=== PATIENT | male | born 2000 | race Caucasian/White ===

== ENCOUNTER → 2021-05-10 15:42 | Outpatient (BNVA) | payer SELFPAY | PROVIDERS: PCP Nurse Practitioner Family; Visit Provider Nurse Practitioner Family | DX: S99.911D Unspecified injury of right ankle, subsequent encounter (principal); X58.XXXD Exposure to other specified factors, subsequent encounter | CPT/HCPCS: 73610; 73630 ==

== ENCOUNTER 2021-05-11 15:23 | Outpatient (CLI) | payer SELFPAY | END 2021-05-11 15:24 | disposition home or self-care (01) | LOC: SPT 15:23 | PROVIDERS: PCP Nurse Practitioner Family; Visit Provider Podiatrist Foot & Ankle Surgery | DX: Z46.89 Encounter for fitting and adjustment of other specified devices (principal); S99.921D Unspecified injury of right foot, subsequent encounter; S99.911D Unspecified injury of right ankle, subsequent encounter; X58.XXXD Exposure to other specified factors, subsequent encounter | CPT/HCPCS: 97760; L4361 ==

== ENCOUNTER → 2021-05-17 12:42 | Outpatient (BNVA) | payer SELFPAY | PROVIDERS: PCP Nurse Practitioner Family; Visit Provider Podiatrist Foot & Ankle Surgery | DX: Z01.818 Encounter for other preprocedural examination (principal) | CPT/HCPCS: 87635 ==

== ENCOUNTER 2021-05-21 08:15 | Day surgery (SDC) | payer SELFPAY ==
[2021-05-20 16:42] VITALS: BMI 27.5
[2021-05-21] VITALS (11 sets, daily range): BP systolic 135–149; BP diastolic 72–87; PULSE 52–104; RESP 16–20; TEMP 36.3–36.8; O2SAT 97–100
--- NOTE | 2021-05-21 | SCC_ITS ---
Procedure Done: ORIF Right Medial Cuneiform 19926 38 seconds of fluoroscopic guidance, for a cumulative dose of 0.7 mGy, was provided to Dr. Banks by the radiology department. C-arm images of the RIGHT foot were saved for the patient's permanent record. [facility]
[2021-05-21] MEDS: sodium chloride 0.9% 1,000 ML 30 ML IV (08:40)
--- NOTE | 2021-05-21 09:21 | P.ANESASSM_ITS ---
Pre-Anesthetic Assessment Pre-Anesthetic Assessment: Height/Weight: Height 1.91 m Weight 99.79 kg Temp Pulse Resp BP Pulse Ox 97.6 F 80 18 149/72 97 05/21/21 08:23 05/21/21 08:23 05/21/21 08:23 05/21/21 08:23 05/21/21 08:23 Preop Diagnosis: Right Lisfranc fracture Proposed Procedure: Operation Date: 05/21/21 09:25 Proposed Procedures p ORIF Right Medial Cuneiform 39405 S92.241(Right) - TERE WhiteM Was Beta Kassi taken within 24 hours: N/A Was Clonidine taken within 24 hours: N/A Last intake: Intake Last Liquid Date 05/20/21 Last Liquid Time 23:59 Last Solid Date 05/20/21 Last Solid Time 19:00 Social: Social History: Tobacco and No alcohol Exam: Pre-Anes Outpt Exam: alert, oriented x 3, clear to auscultation bilatera lly and regular rate & rhythm Airway: Submandibular: WNL Cervical ROM: WNL MP: 2 Dentition: Chipped Anesthetic Plan: ASA status: 2 Anesthesia: General Risk of > 500 ml blood loss (7ml/kg in children): No Meds/Allergies Current Medications: Current Medications Generic Name Dose Route Start Last Admin Trade Name Freq PRN Reason Stop Dose Admin Sodium Chloride 1,000 mls @ 30 ml s/hr 05/21/21 08:30 05/21/21 08:40 Sodium Chloride 0.9% IV 05/22/21 08:29 30 mls/hr .Q24H GENIA Administration PFSH Anesthesia PFSH: Medical History Bursitis and tendinitis of shoulder region Injury of right ankle and foot Muscle spasm of back Social History Alcohol intake: never Data Anesthesia Cardiac Studies: No Data to Display
--- NOTE | 2021-05-21 10:27 | W.PM.OPSUD ---
Surgery/Procedure H&P Update DATE OF PROCEDURE: May 21, 2021 DATE H&P PERFORMED: 05/11/21 H&P UPDATE INFORMATION: I have reviewed H&P completed within last 30 days, I have examined patient prior to procedure, No changes to prior documentation and H&P is in [facility] EMR on date indicated PREOP DIAGNOSIS: Right Lisfranc fracture PLANNED PROCEDURE: Operation Date: 05/21/21 09:25 Proposed Procedures p ORIF Right Medial Cuneiform 24982 S92.241(Right) - Gerber Banks DPM
--- NOTE | 2021-05-21 10:35 | PM.OP ---
Operative Report Date of procedure: May 21, 2021 Pre-op Diagnosis: Right Lisfranc fracture
[2021-05-21] MEDS: lidocaine 1% INJ 20 mL 15 ML INJECTION (11:00)
--- NOTE | 2021-05-21 11:12 | PM.OP ---
Operative Report Date of procedure: May 21, 2021 Pre-op Diagnosis: Right Lisfranc fracture Post-op diagnosis: same Post-op Findings: none Procedure Done: ORIF Right Medial Cuneiform 19029 Implants: Monteview 28 4 mm screw by 46 mm with washer, 4-0 nylon Specimens removed/disposition: none Pathology: none sent Surgeon: Gerber Banks D.P.M. 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 Recommended open reduction internal fixation as best course of action to manage this fracture. Explained to the patient that he has a probability of posttraumatic arthritis, chronic pain and instability as a result of this type of injury. Open reduction for fixation may help reduce this complication. Risks include pain, bleeding, numbness, infection, hardware failure, hardware irritation, need for further also risk for deep vein thrombosis, heart attack, stroke and . Covid screening was negative, patient n.p.o. since midnight, informed consent signed I initialed the patient's right foot. He wishes to proceed. Procedure: Under mild sedation the patient was brought to the operating room and placed on the operating table in supine position. A timeout was performed. Anesthesia was then administered by the anesthesia service. Local anesthesia injected by myself 30 cc of one-to-one mixture 0.5% Marcaine plain and 1% lidocaine plain in a proximal Hanna block fashion to the right foot. Well-padded pneumatic tourniquet applied to the right ankle. The right lower extremity was then scrubbed, prepped and draped utilizing normal aseptic technique. Right foot was extenuated with an Esmarch bandage and the tourniquet was inflated to 250 mmHg. Attention was directed to the right foot where skin marking and trajectory was performed utilizing triangulation with the fluoroscopy intraoperatively. Once the trajectory was confirmed under fluoroscopy a Monteview 28 4 mm x 46 mm partially-threaded cannulated screw with washer was inserted with excellent bony apposition and compression noted utilizing standard AO technique. Placement was appropriate for supporting the Lisfranc ligament and fracture of the medial cuneiform of the right foot. Incision was flushed with saline solution and closed with 4-0 nylon. Incision site was dressed with Adaptic, sterile 4 x 4, Kerlix, Fabrice wrap and cam boot was applied. Tourniquet was deflated and a prompt hyperemic response was noted to the distal digits of the right foot. Patient tolerated the procedure and anesthesia well and was transferred to the PACU with vital signs stable vascular status intact. Following a period of postoperative monitoring he will be discharged home is to remain nonweightbearing to the right foot at all times will be following up in podiatry clinic next week for nurse visit dressing change.
--- NOTE | 2021-05-21 11:17 | XR_ITS ---
WS: [id number] XR foot RT min 3V* [id number] REASON FOR EXAM: post op FINDINGS: Long screw fixation of previously demonstrated right cuboid fracture. Screw extends from medial infer ior cuboid anteriorly and laterally through the fracture fragment and into the base of the second met atarsal. Surgical appliance and associated bony structure in proper position and alignment. XR/XR foot RT min 3V* [id number] IMPRESSION: Postoperative right foot as above.
[2021-05-21] MEDS: meperidine 50 mg/mL INJ 12.5 MG IVP (11:34)
--- NOTE | 2021-05-21 11:37 | SUR.PHASEI ---
medicated for shivering. x ray done.
[2021-05-21] MEDS: fentaNYL 50 mcg/mL INJ 2mL IVP (11:42)
--- NOTE | 2021-05-21 11:45 | SUR.PHASEI ---
re- medicated for foot pain
[2021-05-21] MEDS: oxyCODONE-APAP 10-325 mg Tablet 1 TAB PO (12:13)
--- NOTE | 2021-05-21 13:17 | ANE.PACU2 ---
Inpatient post-anesthesia follow up: Airway intact: Yes Vital signs: Temperature 98.2 F Pulse Rate 59 Respiratory Rate 18 Blood Pressure 145/86 Pulse Oximetry 98 Oxygen Delivery Me thod Room Air Oxygen Flow Rate Fraction of Inspir ed Oxygen Hydration adequate: Yes Nausea and vomiting: No Pain level: 2 Mental status: Baseline
== END 2021-05-21 12:32 | disposition home or self-care (01) ==
PROVIDERS: PCP Nurse Practitioner Family; Visit Provider Podiatrist Foot & Ankle Surgery
PROC: (CPT 28465; principal; 2021-05-21 09:25)
DX: S92.241A Displaced fracture of medial cuneiform of right foot, initial encounter for closed fracture (principal); W23.0XXA Caught, crushed, jammed, or pinched between moving objects, initial encounter
CPT/HCPCS: 28465; 73630; 76000; 96365; C1713; J0690; J2175; J2704; J3010; J3490; J7030

== ENCOUNTER → 2021-06-02 15:18 | Outpatient (BNVA) | payer SELFPAY | PROVIDERS: PCP Nurse Practitioner Family; Visit Provider Podiatrist Foot & Ankle Surgery | DX: Z98.890 Other specified postprocedural states (principal) | CPT/HCPCS: 73630 ==

== ENCOUNTER → 2021-06-30 09:15 | Outpatient (BNVA) | payer SELFPAY | PROVIDERS: PCP Nurse Practitioner Family; Visit Provider Podiatrist Foot & Ankle Surgery | DX: Z98.890 Other specified postprocedural states (principal) | CPT/HCPCS: 73630 ==

== ENCOUNTER → 2021-07-12 10:48 | Outpatient (BNVA) | payer SELFPAY | PROVIDERS: PCP Nurse Practitioner Family; Visit Provider Podiatrist Foot & Ankle Surgery | DX: Z98.890 Other specified postprocedural states (principal) | CPT/HCPCS: 73630 ==

== ENCOUNTER → 2022-06-21 14:15 | Outpatient (BNVA) | payer MEDICAID, SELFPAY | PROVIDERS: PCP Nurse Practitioner; Visit Provider Nurse Practitioner | DX: R19.8 Other specified symptoms and signs involving the digestive system and abdomen (principal) | CPT/HCPCS: 87177; 87209; 87493; 87506 ==

== ENCOUNTER 2022-07-04 20:31 | Emergency (ER) | payer MEDICAID, SELFPAY ==
[2022-07-04 20:39] VITALS: BP 162/105; PULSE 71; RESP 16; TEMP 36.6; O2SAT 99; BMI 28.1
[2022-07-04 20:42] VITALS: BP 140/100; PULSE 68; RESP 16; O2SAT 99
--- NOTE | 2022-07-04 20:42 | ECG_ITS ---
[facility] Test Date: 2022-07-04 Pat Name: Narendra Harrison Department: Room: Gender: Male Director Trial: : 2000 Requested By: Lexy Ahuja Order Number: [id number] Heath MD: Justin Mckeon M.D. Measurements Intervals [place] Rate: 65 P: 56 [place]: 158 QRS: 34 QRSD: 110 T: 20 QT: 388 QTc: 405 Interpretive Statements SINUS RHYTHM No previous ECG available for comparison Electronically Signed On 07-04-2022 22:50:13 CLINICIAN ONCOLOGY by Justin Mckeon M.D. [id number]
--- NOTE | 2022-07-04 20:47 | XRR_ITS ---
PROCEDURE INFORMATION: Exam: XR Chest Exam date and time: 07/04/2022 8:53 PM Age: 22 years old Clinical indication: Pain; Patient HX: C/O palpitations; Additional info: Cp TECHNIQUE: Imaging protocol: Radiologic exam of the chest. Views: 1 view. COMPARISON: No relevant prior studies available. FINDINGS: Lungs: Lungs are clear bilaterally. Pleural spaces: No pleural effusion. No pneumothorax. Heart/Mediastinum: The cardiac silhouette and mediastinal contours are unremarkable. Bones/joints: Unremarkable for age. XR/XR chest 1V portable [id number] IMPRESSION: Negative chest radiograph.
--- NOTE | 2022-07-04 20:47 | W.ED.ABDPA2 ---
HPI - Abdominal Pain General: Chief Complaint: Abdominal Pain Stated Complaint: abd pain, headache Time Seen by Provider: 07/04/22 20:33 Source: patient Mode of arrival: ambulatory Limitations: no limitations History of Present Illness: 22-year-old male states that over the last month he has been having some palpitations along with chest pain and abdominal pain states has been seen at multiple places including at his primary care physician [facility] and [facility] he states he had blood work done along with a Holter monitor and CT scans he states they have came back normal he states he supposed to get set up for an EGD and colonoscopy states that today has been having abdominal cramping he states the pain is roughly a 2 out of 10 he has had no vomiting he has had some mild chest pains as well denies any shortness of breath. He denies any worsening proving factors. Associated Symptoms: Denies chills, dysuria and fever(s) Review of Systems Const: Denies: fever(s), chills, body aches or change in appetite Eyes: Denies: blurry vision or eye discomfort ENMT: Denies: throat pain or dental pain Card: Reports: palpitations Resp: Denies: dyspnea GI: Reports: abdominal pain : Denies: dysuria Musc: Denies: neck pain or back pain Skin/Breast: Denies: rash Neuro: Denies: headache(s) Psych: Denies: depression Sarbjit/Lymph: Denies: easy bruising All/Imm: Denies: urticaria PFSH ED PFSH: Medical History Bursitis and tendinitis of shoulder region Injury of right ankle and foot Muscle spasm of back Social History Alcohol intake: never Physical Exam Const: COMMON NORMALS: no acute distress, patient oriented x3 and healthy appearing HENMT: COMMON NORMALS: normocephalic and atraumatic HEAD & SCALP: normocephalic and atraumatic Eye: COMMON NORMALS: Equal, round and reactive pupils present and EOMs intact bilaterally PUPIL: Yes Equal, round and reactive pupils present Neck/C-Spine: COMMON NORMALS: full ROM and supple Chest: COMMONS NORMALS: normal inspection of the chest and normal palpation of entire chest wall Resp: COMMON NORMALS: normal respiratory effort, No retractions, No use of accessory muscles and clear to auscultation bilaterally AUSCULTATION: clear to auscultation bilaterally Cardio: COMMON NORMALS: regular rate, regular rhythm and No murmurs present (Cardio) RATE: regular rate RHYTHM: regular rhythm GI: COMMON NORMALS: Normal to inspection, nondistended, normoactive bowel sounds present, Soft to palpation, non-tender and no masses PALPATION: Yes Soft to palpation Extremity: COMMON NORMALS: normal to inspection and full ROM Neuro: COMMON NORMALS: patient oriented x3, moves all extremities and no focal motor deficits Psych: COMMON NORMALS: mental status grossly normal, Normal thought process present and cooperative THOUGHT PROCESS: Normal thought process present Skin: COMMON NORMALS: no rashes or lesions noted and no wounds GENERAL SKIN EXAM: no rashes or lesions noted Course Vital Signs: Vital signs: Vital Signs Temperature 97.8 F 07/04/22 20:39 Pulse Rate 68 07/04/22 20:42 Respiratory Rate 16 07/04/22 20:42 Blood Pressure 140/100 07/04/22 20:42 Pulse Oximetry 99 07/04/22 20:42 Oxygen Delivery Me thod 07/04/22 20:42 MDM - Abdominal Pain Medical Decision Making Patient presents here with abdominal pain along chest pains atypical in nature being on for weeks his blood work including troponin here normal he stable for discharge we will get him follow-up with surgery return if worsening. Lab Data 07/04/22 20:40 07/04/22 20:40 Labs/Radiology: Radiology Impressions Chest X-Ray 07/04/22 20:47 IMPRESSION: Negative chest radiograph. Laboratory Results WBC 9.6 10^3/uL (4.0-10.0) 07/04/22 20:40 RBC 5.15 10^6/uL (4.1-5.3) 07/04/22 20:40 Hgb 15.3 g/dL (11.7-16.6) 07/04/22 20:40 Hct 44.4 % (42.0-52.0) 07/04/22 20:40 MCV 86.2 fl (80-94) 07/04/22 20:40 MCH 29.7 pg (28.0-34.0) 07/04/22 20:40 MCHC 34.5 g/dL (30.0-36.0) 07/04/22 20:40 RDW 12.1 % (12.1-15.1) 07/04/22 20:40 Plt Count 265 10^3/cmm (130-400) 07/04/22 20:40 MPV 10.8 fL (7.4-10.4) H 07/04/22 20:40 Neut % (Auto) 58.7 % 07/04/22 20:40 Lymph % (Auto) 32.4 % 07/04/22 20:40 Harper % (Auto) 7.1 % 07/04/22 20:40 Eos % (Auto) 0.9 % 07/04/22 20:40 Baso % (Auto) 0.4 % 07/04/22 20:40 Neut # (Auto) 5.64 10^3/uL (1.8-7.7) 07/04/22 20:40 Lymph # (Auto) 3.1 10^3/uL (0.8-4.8) 07/04/22 20:40 Harper # (Auto) 0.7 10^3/uL (0.2-0.9) 07/04/22 20:40 Eos # (Auto) 0.1 10^3/uL (0.0-0.8) 07/04/22 20:40 Baso # (Auto) 0.0 10^3/uL (0.0-0.1) 07/04/22 20:40 Nucleated RBC % (auto) 0 % 07/04/22 20:40 Nucleated RBCs # 0.0 /100WBC 07/04/22 20:40 Sodium 136 mmol/L (136-145) 07/04/22 20:40 Potassium 3.2 mmol/L (3.5-5.1) L 07/04/22 20:40 Chloride 98 mmol/L (98-107) 07/04/22 20:40 Carbon Dioxide 25 mmol/L (22-29) 07/04/22 20:40 Anion Gap 16.2 (5-19) 07/04/22 20:40 BUN 13 mg/dL (6-20) 07/04/22 20:40 Creatinine 1.1 mg/dL (0.7-1.2) 07/04/22 20:40 GFR Calculation 82.2 mL/min (90-130) L 07/04/22 20:40 Glucose 108 mg/dL (65-115) 07/04/22 20:40 Calculated Osmolality 283 mOsm/kg (285-295) L 07/04/22 20:40 Calcium 9.3 mg/dL (8.5-10.5) 07/04/22 20:40 Total Bilirubin 0.2 mg/dL (0.15-1.2) 07/04/22 20:40 AST 33 U/L (0-40) 07/04/22 20:40 ALT 53 U/L (0-41) H 07/04/22 20:40 Alkaline Phosphatase 79 U/L (40-130) 07/04/22 20:40 Troponin T Baseline 6 ng/L (0-15) 07/04/22 20:40 Total Protein 7.9 g/dL (6.6-8.7) 07/04/22 20:40 Albumin 4.9 g/dL (3.5-5.2) 07/04/22 20:40 Globulin 3.0 g/dL (1.3-4.6) 07/04/22 20:40 Lipase 43 U/L (13-60) 07/04/22 20:40 EKG Data EKG 1: I personally reviewed and interpreted this EKG as follows: EKG interpretation date: 07/04/22 EKG interpretation time: 20:42 Interpretation: nsr hr [address] or t wave abnormalities qrs 110 [id number] Discharge Plan Discharge Patient Disposition: Home Clinical Impression: Abdominal pain, Chest pain Condition: Stable Prescriptions: New ondansetron 4 mg tablet,disintegrating 4 mg PO Q6H PRN (Reason: nausea and vomiting) Qty: 14 0RF dicyclomine 20 mg tablet 20 mg PO TID PRN (Reason: abdominal discomfort) Qty: 20 0RF No Action ibuprofen 800 mg tablet 800 mg PO Q8H PRN (Reason: pain) 30 Days Qty: 90 0RF buspirone 5 mg tablet 5 mg PO BID Qty: 60 1RF omeprazole 40 mg capsule,delayed release(DR/EC) 40 mg PO DAILY 14 Days Qty: 14 0RF Discharge Orders: Discharge ED (Routine); Ordered 07/04/22 Ordered By: Lexy Ahuja Referrals: Frank Nunez DO [Physician] - 1-3 days Discharge Diet: Advance as tolerated Discharge Activity: Resume usual activity Patient Instructions: Abdominal Pain (ED) Coding Level of Care Code ED [employer]ist for Chg Fwd Exam Comprehensive
[2022-07-04 21:04] LABS: Basophils % 0.4 %; Eosinophils # 0.1 10^3/uL (0.0-0.8); Eosinophils % 0.9 %; Hematocrit 44.4 % (42.0-52.0); Hemoglobin 15.3 g/dL (11.7-16.6); Lymphocytes # 3.1 10^3/uL (0.8-4.8); Lymphocytes % 32.4 %; Mean Corpuscular HGB Conc 34.5 g/dL (30.0-36.0); Mean Corpuscular Hemoglobin 29.7 pg (28.0-34.0); Mean Corpuscular Volume 86.2 fl (80-94); Mean Platelet Volume 10.8 fL (7.4-10.4); Monocytes # 0.7 10^3/uL (0.2-0.9); Monocytes % 7.1 %; Neutrophils # 5.64 10^3/uL (1.8-7.7); Neutrophils % 58.7 %; Nucleated Red Blood Cells % 0 %; Platelet Count 265 10^3/cmm (130-400); Red Blood Count 5.15 10^6/uL (4.1-5.3); Red Cell Distribution Width 12.1 % (12.1-15.1); White Blood Count 9.6 10^3/uL (4.0-10.0)
[2022-07-04 21:17] LABS: Alanine Aminotransferase 53 U/L (0-41); Albumin Level 4.9 g/dL (3.5-5.2); Alkaline Phosphatase 79 U/L (40-130); Anion Gap 16.2 (5-19); Aspartate Amino Transferase 33 U/L (0-40); Blood Urea Nitrogen 13 mg/dL (6-20); Calcium 9.3 mg/dL (8.5-10.5); Carbon Dioxide 25 mmol/L (22-29); Chloride 98 mmol/L (98-107); Glomerular Filtration Rate 82.2 mL/min (90-130); Glucose 108 mg/dL (65-115); Lipase 43 U/L (13-60); Osmolality Calculated 283 mOsm/kg (285-295); Potassium 3.2 mmol/L (3.5-5.1); Sodium 136 mmol/L (136-145); Total Bilirubin 0.2 mg/dL (0.15-1.2); Total Protein 7.9 g/dL (6.6-8.7)
[2022-07-04 21:18] LABS: Troponin(5th) Baseline 6 ng/L (0-15)
[2022-07-04 21:38] VITALS: BP 152/99; PULSE 75; RESP 16; O2SAT 100
--- NOTE | 2022-07-05 10:09 | DCPLANNER ---
Addendum entered by Henny Win 07/14/22 15:09: market sales manager received the following message from the front offices staff at general surgery regarding follow up appointment: Patient is going to talk to FA and call us back. 07/11 Original Note: market sales manager had message to schedule a follow up appointment for patient with general surgery. market sales manager sent patients information to the front office staff at general surgery. Patients information will be printed and reviewed. Clinic will call patient with appointment information.
== END 2022-07-04 21:41 | disposition home or self-care (01) ==
PROVIDERS: Emergency Provider Emergency Medicine
DX: R07.9 Chest pain, unspecified (principal); R10.9 Unspecified abdominal pain
CPT/HCPCS: 71045; 80053; 83690; 84484; 85025; 93005; 99285

== ENCOUNTER 2022-07-29 21:31 | Emergency (ER) | payer MEDICAID, SELFPAY ==
[2022-07-29 21:33] VITALS: BP 149/91; PULSE 64; RESP 16; TEMP 36.9; O2SAT 100
[2022-07-29 22:02] LABS: Add Urine Microscopic? NO; Charge for UA Resulting for Rev
[2022-07-29 22:09] LABS: Bilirubin Urine Neg (Negative); Blood Urine Neg (Negative); Glucose Urine UA Norm (Normal); Ketones Urine Negative (Negative); Leukocyte Esterase Urine Negative (Negative); Nitrate Urine Negative (Negative); Protein Urine Neg (Negative); Specific Gravity, Urine 1.005 (1.005-1.030); Urine Appearance Clear (CLEAR); Urine Color Colorless (Yellow); Urobilinogen Urine Neg (Negative); pH Urine 7 (5-7)
[2022-07-29] MEDS: ondansetron 2 mg/ML SDV 2 mL 4 MG IVP (22:11)
[2022-07-29] MEDS: sodium chloride 0.9% 1,000 ML 999 ML IV (22:12)
--- NOTE | 2022-07-29 22:15 | USR_ITS ---
PROCEDURE INFORMATION: Exam: US Abdomen, Limited; Right Upper Quadrant Exam date and time: 07/29/2022 10:22 PM Age: 22 years old Clinical indication: Abdominal pain; Epigastric; Additional info: Ruq pain, nause and diarrhea TECHNIQUE: Imaging protocol: Real time ultrasound of the abdomen with image documentation. Limited exam focused on the right upper quadrant. COMPARISON: No relevant prior studies available. FINDINGS: Pleural spaces: Right pleural effusion. Liver: Normal. No masses. Gallbladder: Small volume echogenic cholelithiasis within a contracted gallbladder. No definite wall thickening. No pericholecystic fluid. Biliary ducts: Normal. No stones. No dilation. Pancreas: Visualized pancreas is unremarkable. Right kidney: Normal. No mass. No hydronephrosis. US/US gall bladder [id number] IMPRESSION: 1. Cholelithiasis. No convincing ultrasound evidence of acute cholecystitis. 2. Negative for biliary obstruction.
--- NOTE | 2022-07-29 22:15 | W.ED.ABDPA2 ---
HPI - Abdominal Pain General: Chief Complaint: Abdominal Pain Stated Complaint: Rt Side ABD Pain Time Seen by Provider: 07/29/22 21:55 History of Present Illness: Patient is a 22-year-old male comes to the ED with abdominal pain. Symptoms started approximately 2 days ago, but says he has had problems like this before about a month ago. His pain is located in the right upper quadrant of the abdomen. He rates his pain currently a 3 out of 10 but says he has episodes where the pain gets more intense and severe and its a 10 out of 10. Pain radiates towards his back as well. He endorses having a decreased appetite since onset of symptoms. He says eating usually makes pain worse. He has had 2 episodes of diarrhea a day for the past 2 days. Endorses having nausea but denies any episodes of emesis. Denies any fevers, dysuria or hematuria. Denies any history of abdominal surgeries. Associated Symptoms: Reports diarrhea and nausea; Denies chills, constipation, dysuria, fever(s), hematochezia, hematuria and vomiting Review of Systems Const: Denies: fever(s), chills or fatigue Eyes: Denies: change in vision or eye discomfort ENMT: Denies: throat pain, odynophagia, nasal discharge or nasal congestion Card: Denies: chest pain, palpitations, edema, swelling of feet/ankles, dyspnea on exertion or orthopnea Resp: Denies: dyspnea, productive cough or non-productive cough GI: Reports: abdominal pain, nausea and diarrhea; Denies: vomiting, constipation or hematochezia : Denies: flank pain, difficulty urinating, dysuria or hematuria Musc: Denies: neck pain, back pain or extremity swelling Skin/Breast: Denies: rash or new lesions Neuro: Denies: headache(s), numbness in extremities or weakness in extremities PFSH ED PFSH: Medical History Bursitis and tendinitis of shoulder region Injury of right ankle and foot Muscle spasm of back Surgical History No pertinent past surgical history Social History Alcohol intake: never Physical Exam Const: COMMON NORMALS: patient oriented x3 and alert GENERAL APPEARANCE: cooperative HENMT: COMMON NORMALS: normocephalic HEAD & SCALP: normocephalic MOUTH: Normal oral and palatal mucosa present THROAT: posterior oropharynx normal and uvula midline Neck/C-Spine: COMMON NORMALS: supple GENERAL: Yes normal visual inspection Resp: COMMON NORMALS: normal respiratory effort, No retractions, No use of accessory muscles and clear to auscultation bilaterally AUSCULTATION: clear to auscultation bilaterally Cardio: COMMON NORMALS: regular rate, regular rhythm, S1 normal heart sound present, S2 normal heart sound present, No gallops present (Cardio), No clicks present (Cardio), No murmurs present (Cardio) and Peripheral pulses 2+ throughout RATE: regular rate RHYTHM: regular rhythm HEART SOUNDS: S1 normal heart sound present and S2 normal heart sound present PERIPHERAL PULSES: Peripheral pulses 2+ throughout GI: COMMON NORMALS: Normal to inspection, nondistended, normoactive bowel sounds present, Soft to palpation and no masses PALPATION: Yes Soft to palpation and Yes Tenderness to palpation present (GI) Details: RUQ : COMMON NORMALS: Yes no CVA tenderness BLADDER/KIDNEY EXAM: Yes no CVA tenderness Back/Pelvis: COMMON NORMALS: no CVA tenderness Extremity: COMMON NORMALS: normal to inspection Neuro: COMMON NORMALS: patient oriented x3 SENSORIUM/ORIENTATION: Yes alert GAIT: Yes Normal gait present Skin: GENERAL SKIN EXAM: dry skin Course Vital Signs: Vital signs: Vital Signs Temperature 98.4 F 07/29/22 21:33 Pulse Rate 64 07/29/22 21:33 Respiratory Rate 16 07/29/22 21:33 Blood Pressure 149/91 07/29/22 21:33 Pulse Oximetry 100 07/29/22 21:33 Oxygen Delivery Me thod 07/29/22 21:33 MDM - Abdominal Pain Medical Decision Making Patient is a 22-year-old male comes to the ED with abdominal pain. Symptoms started approximately 2 days ago, but says he has had problems like this before about a month ago. His pain is located in the right upper quadrant of the abdomen. Endorses nausea and diarrhea and his symptoms worsen after he eats. Vitals are stable. Patient appears nontoxic in no acute distress or pain. He has right upper quadrant abdominal tenderness but rest of exam is benign. Labs are unremarkable. Ultrasound gallbladder shows cholelithiasis no signs of acute cholecystitis. Chest x-ray showed no acute findings. Patient was given IV fluids Zofran for nausea. He was able to keep p.o. fluids down here in the ED. I placed an order with case management for patient to be referred to general surgery for follow-up on right upper quadrant abdominal pain. He was stable for discharge home and sent home with a prescription for nausea and pain med. Return to ED precautions given. Patient understood and agreed with plan. Lab Data I reviewed the patient's lab results. 07/29/22 22:05 07/29/22 22:05 Labs/Radiology: Radiology Impressions Gallbladder Ultrasound 07/29/22 22:15 IMPRESSION: 1. Cholelithiasis. No convincing ultrasound evidence of acute cholecystitis. 2. Negative for biliary obstruction. Chest X-Ray 07/29/22 22:46 IMPRESSION: No acute findings. Laboratory Results WBC 8.7 10^3/uL (4.0-10.0) 07/29/22 22:05 RBC 5.00 10^6/uL (4.1-5.3) 07/29/22 22:05 Hgb 14.6 g/dL (11.7-16.6) 07/29/22 22:05 Hct 41.8 % (42.0-52.0) L 07/29/22 22:05 MCV 83.6 fl (80-94) 07/29/22 22:05 MCH 29.2 pg (28.0-34.0) 07/29/22 22:05 MCHC 34.9 g/dL (30.0-36.0) 07/29/22 22:05 RDW 12.1 % (12.1-15.1) 07/29/22 22:05 Plt Count 245 10^3/cmm (130-400) 07/29/22 22:05 MPV 10.2 fL (7.4-10.4) 07/29/22 22:05 Neut % (Auto) 51.0 % 07/29/22 22:05 Lymph % (Auto) 37.6 % 07/29/22 22:05 [place] % (Auto) 8.8 % 07/29/22 22:05 Eos % (Auto) 1.5 % 07/29/22 22:05 Baso % (Auto) 0.5 % 07/29/22 22:05 Neut # (Auto) 4.46 10^3/uL (1.8-7.7) 07/29/22 22:05 Lymph # (Auto) 3.3 10^3/uL (0.8-4.8) 07/29/22 22:05 [place] # (Auto) 0.8 10^3/uL (0.2-0.9) 07/29/22 22:05 Eos # (Auto) 0.1 10^3/uL (0.0-0.8) 07/29/22 22:05 Baso # (Auto) 0.0 10^3/uL (0.0-0.1) 07/29/22 22:05 Nucleated RBC % (auto) 0 % 07/29/22 22:05 Nucleated RBCs # 0.0 /100WBC 07/29/22 22:05 Sodium 138 mmol/L (136-145) 07/29/22 22:05 Potassium 3.8 mmol/L (3.5-5.1) 07/29/22 22:05 Chloride 101 mmol/L (98-107) 07/29/22 22:05 Carbon Dioxide 25 mmol/L (22-29) 07/29/22 22:05 Anion Gap 15.8 (5-19) 07/29/22 22:05 BUN 17 mg/dL (6-20) 07/29/22 22:05 Creatinine 0.9 mg/dL (0.7-1.2) 07/29/22 22:05 GFR Calculation 103.7 mL/min (90-130) 07/29/22 22:05 Glucose 88 mg/dL (65-115) 07/29/22 22:05 Calculated Osmolality 287 mOsm/kg (285-295) 07/29/22 22:05 Calcium 10.1 mg/dL (8.5-10.5) 07/29/22 22:05 Total Bilirubin 0.4 mg/dL (0.15-1.2) 07/29/22 22:05 AST 33 U/L (0-40) 07/29/22 22:05 ALT 62 U/L (0-41) H 07/29/22 22:05 Alkaline Phosphatase 70 U/L (40-130) 07/29/22 22:05 Total Protein 7.4 g/dL (6.6-8.7) 07/29/22 22:05 Albumin 4.7 g/dL (3.5-5.2) 07/29/22 22:05 Globulin 2.7 g/dL (1.3-4.6) 07/29/22 22:05 Lipase 39 U/L (13-60) 07/29/22 22:05 Urine Color Colorless (Yellow) 07/29/22 21:39 Urine Appearance Clear (CLEAR) 07/29/22 21:39 Urine pH 7 (5-7) 07/29/22 21:39 Ur Specific [place] 1.005 (1.005-1.030) 07/29/22 21:39 Urine Protein Neg (Negative) 07/29/22 21:39 Urine Glucose (UA) Norm (Normal) 07/29/22 21:39 Urine Ketones Negative (Negative) 07/29/22 21:39 Urine Blood Neg (Negative) 07/29/22 21:39 Urine Nitrate Negative (Negative) 07/29/22 21:39 Urine Bilirubin Neg (Negative) 07/29/22 21:39 Urine Urobilinogen Neg mg/dL (Negative) 07/29/22 21:39 Ur Leukocyte Esterase Negative (Negative) 07/29/22 21:39 Discharge Plan Discharge Patient Disposition: Home Clinical Impression: Biliary colic Cholelithiasis Qualifiers: Cholelithiasis location: gallbladder Cholecystitis presence: without cholecystitis Biliary obstruction: without biliary obstruction Qualified Code(s): K80.20 - Calculus of gallbladder without cholecystitis without obstruction Condition: Stable Prescriptions: New ondansetron 4 mg tablet,disintegrating 4 mg PO Q8H PRN (Reason: nausea and vomiting) Qty: 14 0RF No Action ibuprofen 800 mg tablet 800 mg PO Q8H PRN (Reason: pain) 30 Days Qty: 90 0RF omeprazole 40 mg capsule,delayed release(DR/EC) 40 mg PO DAILY 14 Days Qty: 14 0RF sertraline 25 mg tablet 25 mg PO DAILY Qty: 30 1RF hydroxyzine HCl 25 mg tablet 25 mg PO BEDTIME PRN (Reason: insomnia) Qty: 20 0RF ondansetron 4 mg tablet,disintegrating 4 mg PO Q6H PRN (Reason: nausea and vomiting) Qty: 14 0RF dicyclomine 20 mg tablet 20 mg PO TID PRN (Reason: abdominal discomfort) Qty: 20 0RF Discharge Orders: Discharge ED (Routine); Ordered 07/29/22 Ordered By: Rich Maradiaga Discharge Diet: Regular Discharge Activity: Increase activity as tolerated Patient Instructions: Biliary Colic (ED), Opioid Safety Activity Restrictions/Additional Instructions: Follow-up with medical provider as directed. Case management should be contacting you in the next several days set up an appointment with general surgery for follow-up on right upper quadrant abdominal pain. Take medications as prescribed. Return to the ER or your medical provider if condition worsens. Please read and understand discharge instructions. Thank you for choosing [facility] for your healthcare needs today. Please realize this is an emergency room and that we are providing you with a medical screening exam and this may not be complete and all inclusive of all the testing and or work up that you may need to determine your ailment or severity of your illness. It is very important that you follow up as instructed or that you return to the Emergency Department should you have concerns or if your condition changes or worsens in any way. Coding Level of Care Code ED Human Resources Compensation Analyst for Zahraa Desai
[2022-07-29 22:16] LABS: Basophils % 0.5 %; Eosinophils # 0.1 10^3/uL (0.0-0.8); Eosinophils % 1.5 %; Hematocrit 41.8 % (42.0-52.0); Hemoglobin 14.6 g/dL (11.7-16.6); Lymphocytes # 3.3 10^3/uL (0.8-4.8); Lymphocytes % 37.6 %; Mean Corpuscular HGB Conc 34.9 g/dL (30.0-36.0); Mean Corpuscular Hemoglobin 29.2 pg (28.0-34.0); Mean Corpuscular Volume 83.6 fl (80-94); Mean Platelet Volume 10.2 fL (7.4-10.4); Monocytes # 0.8 10^3/uL (0.2-0.9); Monocytes % 8.8 %; Neutrophils # 4.46 10^3/uL (1.8-7.7); Nucleated Red Blood Cells % 0 %; Platelet Count 245 10^3/cmm (130-400); Red Cell Distribution Width 12.1 % (12.1-15.1); White Blood Count 8.7 10^3/uL (4.0-10.0)
[2022-07-29 22:29] LABS: Alanine Aminotransferase 62 U/L (0-41); Albumin Level 4.7 g/dL (3.5-5.2); Alkaline Phosphatase 70 U/L (40-130); Anion Gap 15.8 (5-19); Aspartate Amino Transferase 33 U/L (0-40); Blood Urea Nitrogen 17 mg/dL (6-20); Calcium 10.1 mg/dL (8.5-10.5); Carbon Dioxide 25 mmol/L (22-29); Chloride 101 mmol/L (98-107); Globulin 2.7 g/dL (1.3-4.6); Glomerular Filtration Rate 103.7 mL/min (90-130); Glucose 88 mg/dL (65-115); Lipase 39 U/L (13-60); Osmolality Calculated 287 mOsm/kg (285-295); Potassium 3.8 mmol/L (3.5-5.1); Sodium 138 mmol/L (136-145); Total Bilirubin 0.4 mg/dL (0.15-1.2); Total Protein 7.4 g/dL (6.6-8.7)
--- NOTE | 2022-07-29 22:46 | XRR_ITS ---
PROCEDURE INFORMATION: Exam: XR Chest Exam date and time: 07/29/2022 10:55 PM Age: 22 years old Clinical indication: Shortness of breath; Additional info: Right lower chest pain, SOB TECHNIQUE: Imaging protocol: Radiologic exam of the chest. Views: 2 views. COMPARISON: CR (CHEST, ) 07/04/2022 8:53 PM FINDINGS: Lungs: Unremarkable. No consolidation. Pleural spaces: Unremarkable. No pleural effusion. No pneumothorax. Heart/Mediastinum: Unremarkable. No cardiomegaly. Bones/joints: Unremarkable. XR/XR chest 2V* [id number] IMPRESSION: No acute findings.
--- NOTE | 2022-08-01 13:12 | DCPLANNER ---
Addendum entered by Henny Win 08/02/22 14:14: logistics account manager received the following message from the general surgery clinic regarding follow up appointment: Reached out to Kel in [employer] considering patient is self pay, she said Due to his balance I would not be able to approved any appts. I can mail him an application. Letter will be mailed to patient Original Note: logistics account manager had message to schedule a follow up appointment for patient with general surgery. logistics account manager sent patients information to the front office staff at general surgery. Patients information will be printed and reviewed. Clinic will call patient with appointment information.
== END 2022-07-30 00:03 | disposition home or self-care (01) ==
PROVIDERS: Emergency Provider Physician Assistant
DX: K80.20 Calculus of gallbladder without cholecystitis without obstruction (principal)
CPT/HCPCS: 71046; 76705; 80053; 81003; 83690; 85025; 96374; 99285; J2405; J7030

== ENCOUNTER 2022-07-30 22:20 | Emergency (ER) | payer MEDICAID, SELFPAY ==
[2022-07-30 22:26] VITALS: BP 155/79; PULSE 76; RESP 20; TEMP 36.6; O2SAT 99; BMI 28.7
[2022-07-30 23:58] LABS: Alanine Aminotransferase 61 U/L (0-41); Albumin Level 4.7 g/dL (3.5-5.2); Alkaline Phosphatase 70 U/L (40-130); Aspartate Amino Transferase 34 U/L (0-40); Globulin 2.5 g/dL (1.3-4.6); Lipase 30 U/L (13-60); Total Bilirubin 0.4 mg/dL (0.15-1.2); Total Protein 7.2 g/dL (6.6-8.7)
[2022-07-31 02:10] LABS: Basophils % 0.4 %; Eosinophils # 0.2 10^3/uL (0.0-0.8); Eosinophils % 2.4 %; Hematocrit 41.5 % (42.0-52.0); Hemoglobin 14.2 g/dL (11.7-16.6); Lymphocytes % 37.1 %; Mean Corpuscular HGB Conc 34.2 g/dL (30.0-36.0); Mean Corpuscular Hemoglobin 29.2 pg (28.0-34.0); Mean Corpuscular Volume 85.4 fl (80-94); Mean Platelet Volume 10.6 fL (7.4-10.4); Monocytes # 0.7 10^3/uL (0.2-0.9); Neutrophils # 4.05 10^3/uL (1.8-7.7); Neutrophils % 50.8 %; Nucleated Red Blood Cells % 0 %; Platelet Count 251 10^3/cmm (130-400); Red Blood Count 4.86 10^6/uL (4.1-5.3); Red Cell Distribution Width 12.1 % (12.1-15.1)
--- NOTE | 2022-07-31 02:26 | CTR_ITS ---
PROCEDURE INFORMATION: Exam: CT Head Without Contrast Exam date and time: 07/31/2022 2:33 AM Age: 22 years old Clinical indication: Pain; Headache not specified; Additional info: Worst headache ever, nausea/vomiting TECHNIQUE: Imaging protocol: Computed tomography of the head without contrast. Radiation optimization: All CT scans at this facility use at least one of these dose optimization techniques: automated exposure control; mA and/or kV adjustment per patient size (includes targeted exams where dose is matched to clinical indication); or iterative reconstruction. REPORTING DATA: Count of CT and Cardiac NM exams in prior 12 months: This patient has received 0 known CTs and 0 known cardiac nuclear medicine studies in the 12 months prior to the current study. COMPARISON: No relevant prior studies available. RADIATION DOSE METRICS: Total DLP (mGy-cm): 1184.6 FINDINGS: Brain: Normal. No hemorrhage. Unremarkable white matter. No mass effect. Cerebral ventricles: No ventriculomegaly. Paranasal sinuses: Partially included maxillary sinuses demonstrate mucosal thickening/fluid. Mastoid air cells: Visualized mastoid air cells are well aerated. Bones/joints: Unremarkable. No acute fracture. Soft tissues: Unremarkable. CT/CT head wo con* [id number] IMPRESSION: No acute intracranial abnormality.
[2022-07-31 02:30] VITALS: BP 137/62; PULSE 62; RESP 14; O2SAT 98
[2022-07-31 02:30] LABS: Anion Gap 15.6 (5-19); Blood Urea Nitrogen 10 mg/dL (6-20); Calcium 9.1 mg/dL (8.5-10.5); Carbon Dioxide 25 mmol/L (22-29); Chloride 103 mmol/L (98-107); Glomerular Filtration Rate 103.7 mL/min (90-130); Glucose 109 mg/dL (65-115); Osmolality Calculated 290 mOsm/kg (285-295); Potassium 3.6 mmol/L (3.5-5.1); Sodium 140 mmol/L (136-145)
[2022-07-31] MEDS: sodium chloride 0.9% 500 ML 999 ML IV (02:41)
[2022-07-31] MEDS: ketorolac 30 mg/mL INJ IVP (02:42)
--- NOTE | 2022-07-31 02:43 | ED_ITS ---
HPI - Headache General: Chief Complaint: Abdominal Pain Stated Complaint: abdomen pain, headache Time Seen by Provider: 07/31/22 02:14 History of Present Illness: Patient is a 22-year-old male that comes to the ED with headache. He was seen here yesterday July 29 for some abdominal pain that is being managed with outpatient treatment. Denies worsening abdominal pain. Headache started approximately 2 days ago. He describes the headache as a stabbing pain at the top of his head and says is the worst headache he has ever had in his life. He rates it a 10 out of 10. He endorses having some nausea and vomiting as well. Denies any worsening or improving factors for headache. Denies photophobia. He does not have a history of any past migraines and says he has never had a headache like this before. Denies any recent fall or head trauma to cause a headache. He took of 5 mg hydrocodone earlier today and it did not help his headache. Associated symptoms: Reports nausea and vomiting; Deny chest pain, fever(s) or rash Review of Systems Const: Denies: fever(s), chills or fatigue Eyes: Denies: change in vision or eye discomfort ENMT: Denies: throat pain, odynophagia, nasal discharge or nasal congestion Card: Denies: chest pain, palpitations, edema, swelling of feet/ankles, dyspnea on exertion or orthopnea Resp: Denies: dyspnea, productive cough or non-productive cough GI: Reports: nausea and vomiting; Denies: abdominal pain, diarrhea, constipation or hematochezia : Denies: flank pain, difficulty urinating, dysuria or hematuria Musc: Denies: neck pain, back pain or extremity swelling Skin/Breast: Denies: rash or new lesions Neuro: Reports: headache(s); Denies: numbness in extremities or weakness in extremities PFSH ED PFSH: Medical History Bursitis and tendinitis of shoulder region Injury of right ankle and foot Muscle spasm of back Surgical History No pertinent past surgical history Social History Alcohol intake: never Physical Exam Const: COMMON NORMALS: no acute distress, patient oriented x3 and alert GENERAL APPEARANCE: cooperative HENMT: COMMON NORMALS: normocephalic HEAD & SCALP: normocephalic MOUTH: Normal oral and palatal mucosa present THROAT: posterior oropharynx normal and uvula midline Eye: COMMON NORMALS: Equal, round and reactive pupils present and EOMs intact bilaterally GENERAL EYE: appearance normal, both eyes and all related structu res PUPIL: Yes Equal, round and reactive pupils present Neck/C-Spine: COMMON NORMALS: supple GENERAL: Yes normal visual inspection Lymph: LYMPHATIC: no lymphadenopathy noted Resp: COMMON NORMALS: normal respiratory effort, No retractions, No use of accessory muscles and clear to auscultation bilaterally AUSCULTATION: clear to auscultation bilaterally Cardio: COMMON NORMALS: regular rate, regular rhythm, S1 normal heart sound present, S2 normal heart sound present, No gallops present (Cardio), No clicks present (Cardio), No murmurs present (Cardio) and Peripheral pulses 2+ throughout RATE: regular rate RHYTHM: regular rhythm HEART SOUNDS: S1 normal heart sound present and S2 normal heart sound present PERIPHERAL PULSES: Peripheral pulses 2+ throughout GI: COMMON NORMALS: Normal to inspection, nondistended, normoactive bowel sounds present, Soft to palpation, non-tender and no masses PALPATION: Yes Soft to palpation : COMMON NORMALS: Yes no CVA tenderness BLADDER/KIDNEY EXAM: Yes no CVA tenderness Back/Pelvis: COMMON NORMALS: no CVA tenderness Extremity: GENERAL: Yes normal exam except as noted Neuro: COMMON NORMALS: patient oriented x3, CN's II-XII intact bilaterally, moves all extremities, no focal motor deficits and no sensory deficits noted SENSORIUM/ORIENTATION: Yes alert SPEECH: speech normal GAIT: Yes Normal gait present SENSORY EXAM: Yes extremities (intact) MOTOR EXAM: 5/5 motor strength present throughout Skin: COMMON NORMALS: no rashes or lesions noted GENERAL SKIN EXAM: no rashes or lesions noted and dry skin Course Vital Signs: Vital signs: Vital Signs Temperature 97.8 F 07/30/22 22:26 Pulse Rate 62 07/31/22 02:30 Respiratory Rate 14 07/31/22 02:30 Blood Pressure 118/65 07/31/22 03:28 Pulse Oximetry 96 07/31/22 03:28 Oxygen Delivery Me thod 07/31/22 02:30 MDM - Headache Medical Decision Making Patient is a 22-year-old male that comes to the ED with headache. He was seen here yesterday July 29 for some abdominal pain that is being managed with outpatient treatment. Denies worsening abdominal pain. Headache started approximately 2 days ago. He describes the headache as a stabbing pain at the top of his head and says is the worst headache he has ever had in his life. He rates it a 10 out of 10. He endorses having some nausea and vomiting as well. Denies any worsening or improving factors for headache. Denies photophobia. He does not have a history of any past migraines and says he has never had a headache like this before. Vitals are stable. Patient appears nontoxic and in no acute distress or pain. Neuro exam shows no deficits. Labs are unremarkable. Head CT shows no acute findings. Patient was given IV fluids, Toradol, Reglan, Decadron and Benadryl and his symptoms improved and he said his headache is now below 5 out of 10. He is stable for discharge home and diagnosed with headache. Told to follow-up with his PCP in the next week for reevaluation. Return to ED precautions given. Patient understood agree with plan. Lab Data I reviewed the patient's lab results. 07/30/22 23:18 07/30/22 23:[address] 07/31/22 02: IMPRESSION: No acute intracranial abnormality. Laboratory Results WBC 8.0 10^3/uL (4.0-10.0) 07/30/22 23: RBC 4.86 10^6/uL (4.1-5.3) 07/30/22 23:18 Hgb 14.2 g/dL (11.7-16.6) 07/30/22 23:18 Hct 41.5 % (42.0-52.0) L 07/30/22 23:18 MCV 85.4 fl (80-94) 07/30/22 23: MCH 29.2 pg (28.0-34.0) 07/30/22 23: MCHC 34.2 g/dL (30.0-36.0) 07/30/22 23:18 RDW 12.1 % (12.1-15.1) 07/30/22:18 Plt Count 251 10^3/cmm (130-400) 07/30/22 23:18 MPV 10.6 fL (7.4-10.4) H 07/30/22 23:18 Neut % (Auto) 50.8 % 07/30/22 23:18 Lymph % (Auto) 37.1 % 07/30/22 23:18 [place] % (Auto) 9.0 % 07/30/22 23:18 Eos % (Auto) 2.4 % 07/30/22 23:18 Baso % (Auto) 0.4 % 07/30/22 23:18 Neut # (Auto) 4.05 10^3/uL (1.8-7.7) 07/30/22 23:18 Lymph # (Auto) 3.0 10^3/uL (0.8-4.8) 07/30/22 23:18 [place] # (Auto) 0.7 10^3/uL (0.2-0.9) 07/30/22 23:18 Eos # (Auto) 0.2 10^3/uL (0.0-0.8) 07/30/22 23:18 Baso # (Auto) 0.0 10^3/uL (0.0-0.1) 07/30/22 23:18 Nucleated RBC % (auto) 0 % 07/30/22 23:18 Nucleated RBCs # 0.0 /100WBC 07/30/22 23:18 Sodium 140 mmol/L (136-145) 07/30/22 23:18 Potassium 3.6 mmol/L (3.5-5.1) 07/30/22 23:18 Chloride 103 mmol/L (98-107) 07/30/22 23:18 Carbon Dioxide 25 mmol/L (22-29) 07/30/22 23:18 Anion Gap 15.6 (5-19) 07/30/22 23:18 BUN 10 mg/dL (6-20) 07/30/22 23:18 Creatinine 0.9 mg/dL (0.7-1.2) 07/30/22 23:18 GFR Calculation 103.7 mL/min (90-130) 07/30/22 23:18 Glucose 109 mg/dL (65-115) 07/30/22 23:18 Calculated Osmolality 290 mOsm/kg (285-295) 07/30/22 23:18 Calcium 9.1 mg/dL (8.5-10.5) 07/30/22 23:18 Total Bilirubin 0.4 mg/dL (0.15-1.2) 07/30/22 23:18 Direct Bilirubin 0.20 mg/dL (0.00-0.30) 07/30/22 23:18 AST 34 U/L (0-40) 07/30/22 23:18 ALT 61 U/L (0-41) H 07/30/22 23:18 Alkaline Phosphatase 70 U/L (40-130) 07/30/22 23:18 C-Reactive Protein 3.0 mg/L (0.0-4.9) 07/30/22 23:18 Total Protein 7.2 g/dL (6.6-8.7) 07/30/22 23:18 Albumin 4.7 g/dL (3.5-5.2) 07/30/22 23:18 Globulin 2.5 g/dL (1.3-4.6) 07/30/22 23:18 Lipase 30 U/L (13-60) 07/30/22 23:18 Discharge Plan Discharge Patient Disposition: Home Clinical Impression: Headache Qualifiers: Headache type: unspecified Headache chronicity pattern: acute headache Intractability: not intractable Qualified Code(s): R51.9 - Headache, unspecified Condition: Stable Prescriptions: No Action ibuprofen 800 mg tablet 800 mg PO Q8H PRN (Reason: pain) 30 Days Qty: 90 0RF omeprazole 40 mg capsule,delayed release(DR/EC) 40 mg PO DAILY 14 Days Qty: 14 0RF sertraline 25 mg tablet 25 mg PO DAILY Qty: 30 1RF hydroxyzine HCl 25 mg tablet 25 mg PO BEDTIME PRN (Reason: insomnia) Qty: 20 0RF ondansetron 4 mg tablet,disintegrating 4 mg PO Q6H PRN (Reason: nausea and vomiting) Qty: 14 0RF dicyclomine 20 mg tablet 20 mg PO TID PRN (Reason: abdominal discomfort) Qty: 20 0RF ondansetron 4 mg tablet,disintegrating 4 mg PO Q8H PRN (Reason: nausea and vomiting) Qty: 14 0RF Discharge Orders: Discharge ED (Routine); Ordered 07/31/22 Ordered By: Rich Maradiaga Discharge Diet: Regular Discharge Activity: Increase activity as tolerated Patient Instructions: Acute Headache (DC) Activity Restrictions/Additional Instructions: Follow-up with medical provider as directed next 5 to 7 days for reevaluation. Continue taking all home medications as previously prescribed. Return to the ER or your medical provider if condition worsens. Please read and understand discharge instructions. Thank you for choosing [facility] for your healthcare needs today. Please realize this is an emergency room and that we are providing you with a medical screening exam and this may not be complete and all inclusive of all the testing and or work up that you may need to determine your ailment or severity of your illness. It is very important that you follow up as instructed or that you return to the Emergency Department should you have concerns or if your condition changes or worsens in any way. Coding Level of Care Code ED Backup Operator for Zahraa Desai
[2022-07-31] MEDS: metoclopramide 5 mg/mL SDV 2 mL 10 MG IVP (02:45)
[2022-07-31] MEDS: diphenhydrAMINE 50 mg/mL SDV 1mL 25 MG IVP (02:46)
[2022-07-31] MEDS: dexamethasone 10 mg/mL INJ IM (02:47)
[2022-07-31 03:28] VITALS: BP 118/65; O2SAT 96
== END 2022-07-31 03:32 | disposition home or self-care (01) ==
PROVIDERS: Emergency Medicine; Emergency Provider Physician Assistant
DX: R51.9 Headache, unspecified (principal)
CPT/HCPCS: 36415; 70450; 80048; 80076; 83690; 85025; 86140; 96361; 96372; 96374; 96375; 99285; J1100; J1200; J1885; J2765; J7040

== ENCOUNTER 2022-08-03 17:47 | Inpatient (IN) | payer MEDICAID, SELFPAY ==
--- NOTE | 2022-08-03 18:04 | ED.C_ITS ---
HPI - Psych General: Chief Complaint: Psychiatric Symptoms Stated Complaint: SI Time Seen by Provider: 08/03/22 17:54 Source: patient and EMS Mode of arrival: EMS Limitations: no limitations History of Present Illness: 22-year-old male has a history depression he states he had increased depression over the last few days. He states he has been having a plan of getting a gun and shooting himself he was seen at the clinic and sent here for his suicidal ideations. He denies any worsening improving factors. Associated symptoms: Reports depression and suicidal ideation Review of Systems Const: Denies: fever(s), chills, body aches or change in appetite Eyes: Denies: blurry vision or eye discomfort ENMT: Denies: throat pain or dental pain Card: Denies: chest pain Resp: Denies: dyspnea GI: Denies: abdominal pain, nausea, vomiting or diarrhea : Denies: dysuria Musc: Denies: neck pain or back pain Skin/Breast: Denies: rash Neuro: Denies: headache(s) Psych: Reports: depression and suicidal ideation Sarbjit/Lymph: Denies: easy bruising All/Imm: Denies: urticaria PFSH ED PFSH: Medical History Bursitis and tendinitis of shoulder region Injury of right ankle and foot Muscle spasm of back Surgical History No pertinent past surgical history Social History Alcohol intake: never Physical Exam Const: COMMON NORMALS: no acute distress, patient oriented x3 and healthy appearing HENMT: COMMON NORMALS: normocephalic and atraumatic HEAD & SCALP: normocephalic and atraumatic Eye: COMMON NORMALS: Equal, round and reactive pupils present and EOMs intact bilaterally PUPIL: Yes Equal, round and reactive pupils present Neck/C-Spine: COMMON NORMALS: full ROM and supple Chest: COMMONS NORMALS: normal inspection of the chest and normal palpation of entire chest wall Resp: COMMON NORMALS: normal respiratory effort, No retractions, No use of a ccessory muscles and clear to auscultation bilaterally AUSCULTATION: clear to auscultation bilaterally Cardio: COMMON NORMALS: regular rate, regular rhythm and No murmurs present (Cardio) RATE: regular rate RHYTHM: regular rhythm GI: COMMON NORMALS: Normal to inspection, nondistended, normoactive bowel sounds present, Soft to palpation, non-tender and no masses PALPATION: Yes Soft to palpation Extremity: COMMON NORMALS: normal to inspection and full ROM Neuro: COMMON NORMALS: patient oriented x3, moves all extremities and no focal motor deficits Psych: COMMON NORMALS: mental status grossly normal, Normal thought process present and cooperative THOUGHT PROCESS: Normal thought process present THOUGHT CONTENT: Yes Suicidality present Skin: COMMON NORMALS: no rashes or lesions noted and no wounds GENERAL SKIN EXAM: no rashes or lesions noted Course Vital Signs: Vital signs: Vital Signs Pulse Rate 60 08/03/22 18:41 Blood Pressure 130/82 08/03/22 18:41 Pulse Oximetry 98 08/03/22 18:41 Oxygen Delivery Me thod 08/03/22 18:41 MDM - Psych Medical Decision Making Patient presents here with suicidal ideation with a plan of shooting himself he has been medically cleared I spoke to psychiatrist and will admit at this time. Lab Data 08/03/22 18:25 08/03/22 18:25 Laboratory Results WBC 7.3 10^3/uL (4.0-10.0) 08/03/22 18:25 RBC 5.02 10^6/uL (4.1-5.3) 08/03/22 18:25 Hgb 14.9 g/dL (11.7-16.6) 08/03/22 18:25 Hct 42.2 % (42.0-52.0) 08/03/22 18:25 MCV 84.1 fl (80-94) 08/03/22 18:25 MCH 29.7 pg (28.0-34.0) 08/03/22 18:25 MCHC 35.3 g/dL (30.0-36.0) 08/03/22 18:25 RDW 12.2 % (12.1-15.1) 08/03/22 18:25 Plt Count 206 10^3/cmm (130-400) 08/03/22 18:25 MPV 10.0 fL (7.4-10.4) 08/03/22 18:25 Neut % (Auto) 66.5 % 08/03/22 18:25 Lymph % (Auto) 20.1 % 08/03/22 18:25 [place] % (Auto) 9.6 % 08/03/22 18:25 Eos % (Auto) 2.3 % 08/03/22 18:25 Baso % (Auto) 0.7 % 08/03/22 18:25 Neut # (Auto) 4.87 10^3/uL (1.8-7.7) 08/03/22 18:25 Lymph # (Auto) 1.5 10^3/uL (0.8-4.8) 08/03/22 18:25 [place] # (Auto) 0.7 10^3/uL (0.2-0.9) 08/03/22 18:25 Eos # (Auto) 0.2 10^3/uL (0.0-0.8) 08/03/22 18:25 Baso # (Auto) 0.1 10^3/uL (0.0-0.1) 08/03/22 18:25 Nucleated RBC % (auto) 0 % 08/03/22 18:25 Nucleated RBCs # 0.0 /100WBC 08/03/22 18:25 Sodium 139 mmol/L (136-145) 08/03/22 18:25 Potassium 3.6 mmol/L (3.5-5.1) 08/03/22 18:25 Chloride 101 mmol/L (98-107) 08/03/22 18:25 Carbon Dioxide 25 mmol/L (22-29) 08/03/22 18:25 Anion Gap 16.6 (5-19) 08/03/22 18:25 BUN 10 mg/dL (6-20) 08/03/22 18:25 Creatinine 0.8 mg/dL (0.7-1.2) 08/03/22 18:25 GFR Calculation 118.8 mL/min (90-130) 08/03/22 18:25 Glucose 91 mg/dL (65-115) 08/03/22 18:25 Calculated Osmolality 287 mOsm/kg (285-295) 08/03/22 18:25 Calcium 9.6 mg/dL (8.5-10.5) 08/03/22 18:25 Total Bilirubin 0.6 mg/dL (0.15-1.2) 08/03/22 18:25 AST 31 U/L (0-40) 08/03/22 18:25 Alkaline Phosphatase 95 U/L (40-130) 08/03/22 18:25 Total Protein 7.6 g/dL (6.6-8.7) 08/03/22 18:25 Albumin 4.7 g/dL (3.5-5.2) 08/03/22 18:25 Globulin 2.9 g/dL (1.3-4.6) 08/03/22 18:25 Discharge Plan Discharge Patient Disposition: Admitted As Inpatient Clinical Impression: Suicidal ideation Condition: Stable Prescriptions: No Action ibuprofen 800 mg tablet 800 mg PO Q8H PRN (Reason: pain) 30 Days Qty: 90 0RF omeprazole 40 mg capsule,delayed release(DR/EC) 40 mg PO DAILY 14 Days Qty: 14 0RF sertraline 25 mg tablet 25 mg PO DAILY Qty: 30 1RF hydroxyzine HCl 25 mg tablet 25 mg PO BEDTIME PRN (Reason: insomnia) Qty: 20 0RF ondansetron 4 mg tablet,disintegrating 4 mg PO Q6H PRN (Reason: nausea and vomiting) Qty: 14 0RF dicyclomine 20 mg tablet 20 mg PO TID PRN (Reason: abdominal discomfort) Qty: 20 0RF ondansetron 4 mg tablet,disintegrating 4 mg PO Q8H PRN (Reason: nausea and vomiting) Qty: 14 0RF Referrals: Jackie Irwin FNP [Primary Care Provider] - Coding Level of Care Code ED [facility]
[2022-08-03 18:37] LABS: Basophils # 0.1 10^3/uL (0.0-0.1); Basophils % 0.7 %; Eosinophils # 0.2 10^3/uL (0.0-0.8); Eosinophils % 2.3 %; Hematocrit 42.2 % (42.0-52.0); Hemoglobin 14.9 g/dL (11.7-16.6); Lymphocytes # 1.5 10^3/uL (0.8-4.8); Lymphocytes % 20.1 %; Mean Corpuscular HGB Conc 35.3 g/dL (30.0-36.0); Mean Corpuscular Hemoglobin 29.7 pg (28.0-34.0); Mean Corpuscular Volume 84.1 fl (80-94); Monocytes # 0.7 10^3/uL (0.2-0.9); Monocytes % 9.6 %; Neutrophils # 4.87 10^3/uL (1.8-7.7); Neutrophils % 66.5 %; Nucleated Red Blood Cells % 0 %; Platelet Count 206 10^3/cmm (130-400); Red Blood Count 5.02 10^6/uL (4.1-5.3); Red Cell Distribution Width 12.2 % (12.1-15.1); White Blood Count 7.3 10^3/uL (4.0-10.0)
[2022-08-03 18:41] VITALS: BP 130/82; PULSE 60; O2SAT 98; BMI 28.1
[2022-08-03 18:56] LABS: Alanine Aminotransferase 49 U/L (0-41); Albumin Level 4.7 g/dL (3.5-5.2); Alkaline Phosphatase 95 U/L (40-130); Anion Gap 16.6 (5-19); Aspartate Amino Transferase 31 U/L (0-40); Blood Urea Nitrogen 10 mg/dL (6-20); Calcium 9.6 mg/dL (8.5-10.5); Carbon Dioxide 25 mmol/L (22-29); Chloride 101 mmol/L (98-107); Globulin 2.9 g/dL (1.3-4.6); Glomerular Filtration Rate 118.8 mL/min (90-130); Glucose 91 mg/dL (65-115); Osmolality Calculated 287 mOsm/kg (285-295); Potassium 3.6 mmol/L (3.5-5.1); Sodium 139 mmol/L (136-145); Total Bilirubin 0.6 mg/dL (0.15-1.2); Total Protein 7.6 g/dL (6.6-8.7)
[2022-08-03 19:04] LABS: Acetaminophen < 5.0 ug/mL (10-30); Alcohol Level < 10 mg/dL (0-10); Salicylate < 0.3 mg/dL (3-10)
--- NOTE | 2022-08-03 19:32 | PC.NURSE ---
96 HOUR hold rights reviewed with patient and copy given to patient. Patient verbalized understandings.
[2022-08-03 19:34] LABS: Amphetamines Screen Urine Negative (Negative); Barbiturates Screen Urine Negative (Negative); Benzodiazepines Screen Urine Negative (Negative); Cocaine Screen Urine Negative (Negative); Opiate Screen Urine Positive (Negative); PCP Screen Urine Negative (Negative); THC Screen Urine Positive (Negative)
[2022-08-03 19:42] VITALS: BP 140/75; PULSE 56; RESP 16; TEMP 37.3; O2SAT 99
[2022-08-03 21:03] VITALS: BP 135/86; PULSE 65; RESP 16; TEMP 36.8; O2SAT 98
[2022-08-03] MEDS: hyDROXYzine 25 mg Capsule 50 MG PO (21:57)
[2022-08-03] MEDS: trazodone 50 mg Tablet PO (21:58)
[2022-08-03] MEDS: ondansetron 4 MG Tablet PO (21:58)
[2022-08-03] MEDS: acetaminophen 325 mg Tablet 650 MG PO (21:58)
[2022-08-04 06:00] VITALS: BP 129/70; PULSE 72; RESP 15; TEMP 36.3; O2SAT 95
[2022-08-04] MEDS: propranolol 20 mg Tablet PO ×3 (10:15→21:17)
[2022-08-04] MEDS: sertraline 50 mg Tablet 25 MG PO (10:16)
[2022-08-04] MEDS: pantoprazole DR 40 mg Tablet PO (10:16)
[2022-08-04 14:00] VITALS: BP 121/73; PULSE 58; RESP 18; TEMP 36.3; O2SAT 97
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
[2022-08-04] MEDS: ondansetron 4 MG Tablet PO (15:02)
[2022-08-04] MEDS: nicotine 2 mg Gum BUCCAL (20:21)
[2022-08-04] MEDS: acetaminophen 325 mg Tablet 650 MG PO (20:22)
[2022-08-04] MEDS: trazodone 50 mg Tablet PO (21:49)
[2022-08-04] MEDS: hyDROXYzine 25 mg Capsule 50 MG PO (21:49)
[2022-08-04 22:00] VITALS: BP 128/80; PULSE 51; RESP 17; TEMP 36.4; O2SAT 97
[2022-08-05 06:00] VITALS: BP 116/68; PULSE 67; RESP 15; TEMP 36.6; O2SAT 98
[2022-08-05] MEDS: propranolol 20 mg Tablet PO ×3 (11:07→20:51)
[2022-08-05] MEDS: pantoprazole DR 40 mg Tablet PO (11:07)
[2022-08-05] MEDS: fluoxetine 20 mg Capsule PO (11:24)
[2022-08-05] MEDS: acetaminophen 325 mg Tablet 650 MG PO (11:24)
[2022-08-05] MEDS: nicotine 2 mg Gum BUCCAL ×3 (11:24→20:51)
--- NOTE | 2022-08-05 13:50 | P.NPUPN_ITS ---
Subjective NPU Subjective: Patient presented today reporting that he is feeling better. We had a discussion about the gun that was discussed in the affidavit. He denies access to any guns and denies active lethality. He reports it was just something stupid he said in the moment of extreme anxiety and stress. He repo rts he was overwhelmed and that was just his response but that he identifies he has so many things to live for starting with his 3 sons. We discussed the likelihood of discharge in the morning. Mental Status Exam MSE Comments: This is a tall well nourished, well developed white male in hospital scrubs with adequate grooming and improved eye contact. No abnormal movements except for mild psychomotor retardation. Cooperative with exam in no acute distress. Speech was slightly decreased rate and volume. Mood described as better, affect is congruent. Thought process, organized. Thought content: patien t denies suicidal or homicidal ideation, no delusions reported or noted and denies any auditory or visual hallucinations. Attention and concentration are intact and memory appeared reliable but none were formally tested. He is alert and oriented times three. Insight and judgment are fair. Impulse control is limited. Vitals/I&O/Wt Last Vital Signs Temp 97.9 F L 08/05/22 06:00 Pulse 67 08/05/22 06:00 Resp 15 08/05/22 06:00 BP 116/68 08/05/22 06:00 Pulse Ox 98 08/05/22 06:00 O2 Del Method 08/05/22 06:00 Data NPU 08/03/22 18:25 08/03/22 18:25 A&P Assessment and plan (1) Suicidal ideation: (2) Bereavement: (3) Depression: (4) GRISELDA (generalized anxiety disorder): Plan This is a 22 year old white man with a significant history of trauma, symptoms of anxiety and depression, recent loss, and genetic loading for mental health and addiction issues who presents reporting some success on his current medications with an openness to changes in those medications at this time. 1. Continue current medications except discontinued Zoloft. Started Prozac 20 mg poq daily 2. Encourage individual, group and milieu therapy 3. Continue q-15 minute check for safety. 4. Tentative plan for discharge tomorrow. Involuntary Hold Information 96 Hour Hold: 96 Hour Involuntary Admission: Yes 96 Hour Hold Ending Date: 08/09/22 96 Hour Hold Ending Time: 18:39 Attestations NPU Medical Necessity Statement*: Inpatient hospitalization is medically necessary and the clinically appropriate intervention at this time. We will monitor medications and make changes as indicated. Likely length of stay is 1-3 days. Coding Level of Care Code Acute Code for Chg Fwd Diagnoses Suicidal ideation R45.851 Bereavement Z63.4 Depression F32.A GRISELDA (generalized anxiety disorder) F41.1
[2022-08-05 14:00] VITALS: BP 149/75; PULSE 60; RESP 16; TEMP 36.6; O2SAT 98
[2022-08-05] MEDS: hyDROXYzine 25 mg Capsule 50 MG PO (16:14)
[2022-08-05 22:00] VITALS: BP 124/73; PULSE 58; RESP 16; TEMP 36.8; O2SAT 98
[2022-08-06 06:00] VITALS: BP 117/69; PULSE 56; RESP 15; TEMP 36.4; O2SAT 99
[2022-08-06] MEDS: propranolol 20 mg Tablet PO (08:50)
[2022-08-06] MEDS: pantoprazole DR 40 mg Tablet PO (08:50)
[2022-08-06] MEDS: fluoxetine 20 mg Capsule PO (08:50)
[2022-08-06] MEDS: nicotine 2 mg Gum BUCCAL (08:50)
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
[2022-08-06 09:24] VITALS: BP 117/69; PULSE 56; RESP 15; TEMP 36.4; O2SAT 99
[2022-08-06] MEDS: acetaminophen 325 mg Tablet 650 MG PO (09:42)
== END 2022-08-06 10:47 | disposition home or self-care (01) | DRG 881 ==
LOC: ER 19:01 → NP 19:27
PROVIDERS: Admitting Provider Psychiatry & Neurology Psychiatry; Emergency Provider Emergency Medicine; PCP Nurse Practitioner; Visit Provider Psychiatry & Neurology Psychiatry
DX: F32.A Depression, unspecified (principal); R45.851 Suicidal ideations; F41.9 Anxiety disorder, unspecified; Z63.4 Disappearance and death of family member; Z62.810 Personal history of physical and sexual abuse in childhood; Z62.811 Personal history of psychological abuse in childhood; Z81.8 Family history of other mental and behavioral disorders
CPT/HCPCS: 36415; 80053; 80306; 80307; 85025; 97150; 97165; 99238; 99285; Q0162

== ENCOUNTER 2022-08-16 17:23 | Emergency (ER) | payer MEDICAID, SELFPAY ==
[2022-08-16] VITALS (16 sets, daily range): BP systolic 115–143; BP diastolic 66–83; PULSE 49–73; RESP 5–28; TEMP 36.9; O2SAT 92–100; BMI 28.7
--- NOTE | 2022-08-16 17:28 | XRR_ITS ---
PROCEDURE INFORMATION: Exam: XR Chest Exam date and time: 08/16/2022 5:40 PM Age: 22 years old Clinical indication: Chest wall pain; Additional info: Chest pain TECHNIQUE: Imaging protocol: Radiologic exam of the chest. Views: 1 view. COMPARISON: CR (CHEST, ) 07/29/2022 10:55 PM FINDINGS: Lungs: Unremarkable. No consolidation. Pleural spaces: Unremarkable. No pleural effusion. No pneumothorax. Heart/Mediastinum: Unremarkable. No cardiomegaly. Bones/joints: Unremarkable. XR/XR chest 1V portable [id number] IMPRESSION: No acute findings.
--- NOTE | 2022-08-16 17:29 | ECG_ITS ---
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
[2022-08-16 17:51] LABS: Basophils % 0.5 %; Eosinophils # 0.2 10^3/uL (0.0-0.8); Eosinophils % 1.8 %; Hematocrit 39.7 % (42.0-52.0); Hemoglobin 14.1 g/dL (11.7-16.6); Lymphocytes % 35.6 %; Mean Corpuscular HGB Conc 35.5 g/dL (30.0-36.0); Mean Corpuscular Hemoglobin 29.8 pg (28.0-34.0); Mean Corpuscular Volume 83.9 fl (80-94); Mean Platelet Volume 10.7 fL (7.4-10.4); Monocytes # 0.6 10^3/uL (0.2-0.9); Monocytes % 7.2 %; Neutrophils # 4.49 10^3/uL (1.8-7.7); Neutrophils % 54.1 %; Nucleated Red Blood Cells % 0 %; Platelet Count 270 10^3/cmm (130-400); Red Blood Count 4.73 10^6/uL (4.1-5.3); Red Cell Distribution Width 12.3 % (12.1-15.1); White Blood Count 8.3 10^3/uL (4.0-10.0)
[2022-08-16 18:03] LABS: Add Urine Microscopic? NO; Charge for UA Resulting for Rev
[2022-08-16 18:08] LABS: Urine Appearance Clear (CLEAR); Urine Color Light yellow (Yellow); pH Urine 8 (5-7)
[2022-08-16 18:09] LABS: Bilirubin Urine Neg (Negative); Blood Urine Neg (Negative); Glucose Urine UA Norm (Normal); Ketones Urine Negative (Negative); Leukocyte Esterase Urine Negative (Negative); Nitrate Urine Negative (Negative); Protein Urine Neg (Negative); Sulfosalicylic Acid Urine Negative (Negative); Urobilinogen Urine Norm (Negative)
[2022-08-16 18:17] LABS: Amphetamines Screen Urine Negative (Negative); Barbiturates Screen Urine Negative (Negative); Benzodiazepines Screen Urine Negative (Negative); Cocaine Screen Urine Negative (Negative); Opiate Screen Urine Negative (Negative); PCP Screen Urine Negative (Negative); THC Screen Urine Positive (Negative)
[2022-08-16 18:20] LABS: Albumin Level 4.8 g/dL (3.5-5.2); Alkaline Phosphatase 74 U/L (40-130); Anion Gap 17.7 (5-19); Blood Urea Nitrogen 12 mg/dL (6-20); Calcium 9.7 mg/dL (8.5-10.5); Carbon Dioxide 25 mmol/L (22-29); Chloride 100 mmol/L (98-107); Globulin 2.6 g/dL (1.3-4.6); Glomerular Filtration Rate 138.6 mL/min (90-130); Glucose 93 mg/dL (65-115); Osmolality Calculated 287 mOsm/kg (285-295); Potassium 3.7 mmol/L (3.5-5.1); Sodium 139 mmol/L (136-145); Total Bilirubin 0.3 mg/dL (0.15-1.2); Total Protein 7.4 g/dL (6.6-8.7)
[2022-08-16 18:24] LABS: Alanine Aminotransferase 57 U/L (0-41); Aspartate Amino Transferase 32 U/L (0-40)
[2022-08-16 18:37] LABS: Troponin(5th) Baseline 6 ng/L (0-15)
--- NOTE | 2022-08-16 19:29 | ECG_ITS ---
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
[2022-08-16 20:17] LABS: Troponin 5 2HR Delta 0 ABS# (0-10)
== END 2022-08-16 21:12 | disposition home or self-care (01) ==
PROVIDERS: Emergency Provider Emergency Medicine; PCP Nurse Practitioner
DX: R07.89 Other chest pain (principal); R00.1 Bradycardia, unspecified
CPT/HCPCS: 36415; 71045; 80053; 80306; 81003; 84484; 85025; 93005; 99285

== ENCOUNTER 2022-08-19 19:20 | Emergency (ER) | payer MEDICAID, SELFPAY ==
[2022-08-19 19:21] VITALS: BP 143/81; PULSE 54; RESP 18; TEMP 36.7; O2SAT 99; BMI 28.7
--- NOTE | 2022-08-19 19:23 | ED_ITS ---
HPI - Chest Pain General: Chief Complaint: Chest Pain Stated Complaint: CP Time Seen by Provider: 08/19/22 19:22 History of Present Illness: Mr. Harrison is a 22-year-old gentleman with history of anxiety, high blood pressure, vaping, positive family history for premature CAD presenting to the emergency department for chest discomfort. He reports symptoms left-sided chest pain last week that resolved however it is recurred over the past few days. He notes burning aching pain associated with an unwell feeling and radiation down the left arm. He also noted to EMS some hematemesis. Intensity symptoms is moderate. Course has persisted. No other specific changes in health, exacerbating, or alleviating factors identified. Onset (ago): day(s) Timing of current episode: episodic Prior episodes: No Onset: during rest Pain location: left chest Pain radiation: none Severity: moderate Quality: burning Relieving factors: nothing Exacerbating factors: nothing Associated symptoms: Reports vomiting and other Review of Systems General: Reports: 10 or more systems reviewed and unremarkable except in HPI and below GI: Reports: vomiting PFSH ED PFSH: Medical History Bursitis and tendinitis of shoulder region Injury of right ankle and foot Muscle spasm of back Psychiatric care Surgical History No pertinent past surgical history Social History Alcohol intake: never Physical Exam Const: COMMON NORMALS: alert GENERAL APPEARANCE: cooperative and well developed HENMT: COMMON NORMALS: normocephalic and atraumatic HEAD & SCALP: normocephalic and atraumatic THROAT: posterior oropharynx normal Eye: COMMON NORMALS: conjunctivae normal CONJUNCTIVA: Yes conjunctivae normal SCLERA: sclerae normal Neck/C-Spine: COMMON NORMALS: supple GENERAL: Yes trachea midline Resp: COMMON NORMALS: clear to auscultation bilaterally EFFORT & INSPECTION: Yes able to speak in complete sentences AUSCULTATION: clear to auscultation bilaterally Cardio: COMMON NORMALS: regular rate and regular rhythm RATE: regular rate RHYTHM: regular rhythm GI: COMMON NORMALS: Soft to palpation PALPATION: Yes Soft to palpation and No Tenderness to palpation present (GI) Extremity: GENERAL: Yes normal exam except as noted and No edema Neuro: COMMON NORMALS: moves all extremities SENSORIUM/ORIENTATION: Yes alert and No Orientation impaired Psych: COMMON NORMALS: mental status grossly normal and Normal thought process present THOUGHT PROCESS: Normal thought process present Course Vital Signs: Vital signs: Vital Signs Temperature 98.1 F 08/19/22 19:21 Pulse Rate 57 L 08/19/22 19:34 Respiratory Rate 12 08/19/22 19:34 Blood Pressure 147/79 08/19/22 19:34 Pulse Oximetry 98 08/19/22 19:34 MDM - Chest Pain Medical Decision Making 22-year-old gentleman presenting with burning chest pain. Patient also has associated nausea, vomiting, diarrhea. Exam as above. Patient is nontoxic in appearance. EKG notable for sinus rhythm with normal axis and intervals. No STEMI. Labs notable for no significant hematologic or metabolic abnormalities with exception of mild transaminitis. No right upper quadrant tenderness to palpation. D-dimer is negative. Negative range 2-hour delta troponin. No UTI. Chest x-ray with no lobar consolidation or pneumothorax. During ED course patient treated with analgesia, fluids, GI cocktail and feels improved. Patient is low risk by heart score. Most likely etiology of patient's symptoms is unclear though does not appear to need hospitalization at this time. The results of ED evaluation were discussed with the patient including prescriptions and/or symptomatic cares (if applicable) including appropriate and responsible use, followup plan, and return precautions. The patient verbalized understanding and felt safe for discharge. Medical Records I reviewed the patient's medical records. Lab Data I reviewed the patient's lab results. 08/19/22 19:39 08/19/22 19:39 Radiology Impressions Chest X-Ray 08/19/22 19:29 IMPRESSION: No acute findings. Laboratory Results WBC 7.1 10^3/uL (4.0-10.0) 08/19/22 19:39 RBC 4.76 10^6/uL (4.1-5.3) 08/19/22 19:39 Hgb 14.0 g/dL (11.7-16.6) 08/19/22 19:39 Hct 41.2 % (42.0-52.0) L 08/19/22 19:39 MCV 86.6 fl (80-94) 08/19/22 19:39 MCH 29.4 pg (28.0-34.0) 08/19/22 19:39 MCHC 34.0 g/dL (30.0-36.0) 08/19/22 19:39 RDW 12.6 % (12.1-15.1) 08/19/22 19:39 Plt Count 257 10^3/cmm (130-400) 08/19/22 19:39 MPV 10.3 fL (7.4-10.4) 08/19/22 19:39 Neut % (Auto) 52.5 % 08/19/22 19:39 Lymph % (Auto) 36.7 % 08/19/22 19:39 [place] % (Auto) 7.7 % 08/19/22 19:39 Eos % (Auto) 2.0 % 08/19/22 19:39 Baso % (Auto) 0.4 % 08/19/22 19:39 Neut # (Auto) 3.75 10^3/uL (1.8-7.7) 08/19/22 19:39 Lymph # (Auto) 2.6 10^3/uL (0.8-4.8) 08/19/22 19:39 [place] # (Auto) 0.6 10^3/uL (0.2-0.9) 08/19/22 19:39 Eos # (Auto) 0.1 10^3/uL (0.0-0.8) 08/19/22 19:39 Baso # (Auto) 0.0 10^3/uL (0.0-0.1) 08/19/22 19: Nucleated RBC % (auto) 0 % 08/19/22 19: Nucleated RBCs # 0.0 /100WBC 08/19/22 19:39 D-Dimer 0.30 ug/mIFEU (0-0.59) 08/19/22 19:39 Sodium 141 mmol/L (136-145) 08/19/22 19:39 Potassium 4.6 mmol/L (3.5-5.1) 08/19/22 19:39 Chloride 103 mmol/L (98-107) 08/19/22 19:39 Carbon Dioxide 28 mmol/L (22-29) 08/19/22 19:39 Anion Gap 14.6 (5-19) 08/19/22 19:39 BUN 12 mg/dL (6-20) 08/19/22 19:39 Creatinine 0.8 mg/dL (0.7-1.2) 08/19/22 19:39 GFR Calculation 118.8 mL/min (90-130) 08/19/22 19:39 Glucose 93 mg/dL (65-115) 08/19/22 19:39 Calculated Osmolality 291 mOsm/kg (285-295) 08/19/22 19:39 Calcium 9.8 mg/dL (8.5-10.5) 08/19/22 19:39 Total Bilirubin 0.2 mg/dL (0.15-1.2) 08/19/22 19:39 AST 52 U/L (0-40) H 08/19/22 19:39 ALT 96 U/L (0-41) H 08/19/22 19:39 Alkaline Phosphatase 70 U/L (40-130) 08/19/22 19:39 Troponin T Baseline 6 ng/L (0-15) 08/19/22 19:39 Troponin T 120 Minute 6.00 ng/L (0-15) 08/19/22 21:39 Delta Troponin T 0 ABS# (0-10) 08/19/22 21:39 Total Protein 7.1 g/dL (6.6-8.7) 08/19/22 19:39 Albumin 4.9 g/dL (3.5-5.2) 08/19/22 19:39 Globulin 2.2 g/dL (1.3-4.6) 08/19/22 19:39 Lipase 41 U/L (13-60) 08/19/22 19:39 Urine Color Colorless (Yellow) 08/19/22 19:39 Urine Appearance Clear (CLEAR) 08/19/22 19:39 Urine pH 6 (5-7) 08/19/22 19:39 Ur Specific [place] 1.010 (1.005-1.030) 08/19/22 19:39 Urine Protein Neg (Negative) 08/19/22 19:39 Urine Glucose (UA) Norm (Normal) 08/19/22 19:39 Urine Ketones Negative (Negative) 08/19/22 19:39 Urine Blood Neg (Negative) 08/19/22 19:39 Urine Nitrate Negative (Negative) 08/19/22 19:39 Urine Bilirubin Neg (Negative) 08/19/22 19:39 Urine Urobilinogen Norm mg/dL (Negative) 08/19/22 19:39 Ur Leukocyte Esterase Negative (Negative) 08/19/22 19:39 Discharge Plan Discharge Patient Disposition: Home Clinical Impression: Atypical chest pain, Bronchitis Condition: Stable Prescriptions: New albuterol sulfate 90 mcg/actuation HFA aerosol inhaler 2 inh inhalation Q4H PRN (Reason: shortness of breath or wheezing) Qty: 8.5 0RF oxycodone 5 mg tablet 5 mg PO Q4H PRN (Reason: pain) Qty: 10 0RF No Action ibuprofen 800 mg tablet 800 mg PO Q8H PRN (Reason: pain) Qty: 90 0RF trazodone 50 mg tablet 25 mg PO BEDTIME PRN (Reason: insomnia) Qty: 30 0RF sumatriptan succinate 25 mg tablet See Rx Instructions PO .COMPLEX Qty: 10 0RF Rx Instructions: take 1 tab at onset of headache; if no relief may repeat 1 tab after at least 2 hrs; max = 4 tabs/24 hr PO fluoxetine 20 mg Capsule 20 mg PO DAILY 30 Days Qty: 30 1RF hydroxyzine pamoate 25 mg Capsule 50 mg PO Q6H PRN (Reason: Anxiety) 30 Days Qty: 120 1RF omeprazole 40 mg capsule,delayed release(DR/EC) 40 mg PO DAILY 30 Days Qty: 30 1RF lisinopril 10 mg tablet 10 mg PO DAILY Qty: 30 0RF prednisone 20 mg tablet 20 mg PO BID 7 Days Qty: 14 0RF cefdinir 300 mg capsule 300 mg PO BID 7 Days Qty: 14 0RF Discharge Orders: Discharge ED (Routine); Ordered 08/19/22 Ordered By: Dave Mendez Referrals: Jackie Irwin FNP [Primary Care Provider] - Discharge Diet: Usual diet Discharge Activity: Increase activity as tolerated Patient Instructions: Chest Pain (ED), Acute Bronchitis (ED), Opioid Safety Activity Restrictions/Additional Instructions: Thank you for visiting the emergency department. You were seen and evaluated for chest pain. The exact cause of your symptoms is unclear though based on risk stratification does not require inpatient management at this time. I will prescribe steroids and antibiotics. Please also use your albuterol metered-dose inhaler 2 puffs every 4 hours for 24 hours followed by 2 puffs every 6 hours for 24 hours followed by 2 puffs every 8 hours for 24 hours and then return to the normal schedule. You may use [id number] medications such as acetaminophen and ibuprofen for pain however please do not exceed the daily recommended dosage as listed on the packaging and please keep in mind that many namebrand medications contain the same active ingredients. Please avoid these medications if previously instructed to do so by another physician due to other underlying medical condition. Please ensure to continue your medications including omeprazole. Return to the emergency department for anything that you are concerned about and feel needs emergency department evaluation. Coding Level of Care Code ED Customer Care Assistant for Zahraa Desai
--- NOTE | 2022-08-19 19:29 | XRR_ITS ---
PROCEDURE INFORMATION: Exam: XR Chest Exam date and time: 08/19/2022 7:51 PM Age: 22 years old Clinical indication: Cough; Additional info: Cp TECHNIQUE: Imaging protocol: Radiologic exam of the chest. Views: 1 view. COMPARISON: CR (CHEST, ) 08/16/2022 5:40 PM FINDINGS: Lungs: Unremarkable. No consolidation. Pleural spaces: Unremarkable. No pleural effusion. No pneumothorax. Heart/Mediastinum: Unremarkable. No cardiomegaly. Bones/joints: Unremarkable. XR/XR chest 1V portable [id number] IMPRESSION: No acute findings.
--- NOTE | 2022-08-19 19:29 | ECG_ITS ---
[facility] Test Date: 2022-08-19 Pat Name: Narnedra Harrison Department: Room: Gender: Male Tread Booker: : 2000 Requested By: Dave Mendez Order Number: [id number] Reading MD: ADAM ALEXIS Measurements Intervals [place] Rate: 60 P: 33 NH: 164 QRS: 5 QRSD: 88 T: 43 QT: 394 QTc: 394 Interpretive Statements SINUS RHYTHM Compared to ECG 08/16/2022 20:31:45 Sinus bradycardia no longer present T-wave abnormality no longer present Electronically Signed On 08-20-2022 23:37:21 CDT by ADAM ALEXIS [id number]
[2022-08-19 19:34] VITALS: BP 147/79; PULSE 57; RESP 12; O2SAT 98
[2022-08-19 19:51] LABS: Add Urine Microscopic? NO; Charge for UA Resulting for Rev
[2022-08-19 19:54] LABS: Bilirubin Urine Neg (Negative); Blood Urine Neg (Negative); Glucose Urine UA Norm (Normal); Ketones Urine Negative (Negative); Leukocyte Esterase Urine Negative (Negative); Nitrate Urine Negative (Negative); Protein Urine Neg (Negative); Urine Appearance Clear (CLEAR); Urine Color Colorless (Yellow); Urobilinogen Urine Norm (Negative); pH Urine 6 (5-7)
[2022-08-19 19:55] LABS: Basophils % 0.4 %; Eosinophils # 0.1 10^3/uL (0.0-0.8); Hematocrit 41.2 % (42.0-52.0); Lymphocytes # 2.6 10^3/uL (0.8-4.8); Lymphocytes % 36.7 %; Mean Corpuscular Hemoglobin 29.4 pg (28.0-34.0); Mean Corpuscular Volume 86.6 fl (80-94); Mean Platelet Volume 10.3 fL (7.4-10.4); Monocytes # 0.6 10^3/uL (0.2-0.9); Monocytes % 7.7 %; Neutrophils # 3.75 10^3/uL (1.8-7.7); Neutrophils % 52.5 %; Nucleated Red Blood Cells % 0 %; Platelet Count 257 10^3/cmm (130-400); Red Blood Count 4.76 10^6/uL (4.1-5.3); Red Cell Distribution Width 12.6 % (12.1-15.1); White Blood Count 7.1 10^3/uL (4.0-10.0)
[2022-08-19] MEDS: sodium chloride 0.9% 1,000 ML 999 ML IV (19:56)
[2022-08-19 20:11] LABS: Troponin(5th) Baseline 6 ng/L (0-15)
[2022-08-19 20:14] LABS: Alanine Aminotransferase 96 U/L (0-41); Albumin Level 4.9 g/dL (3.5-5.2); Alkaline Phosphatase 70 U/L (40-130); Aspartate Amino Transferase 52 U/L (0-40); Blood Urea Nitrogen 12 mg/dL (6-20); Calcium 9.8 mg/dL (8.5-10.5); Carbon Dioxide 28 mmol/L (22-29); Chloride 103 mmol/L (98-107); Globulin 2.2 g/dL (1.3-4.6); Glomerular Filtration Rate 118.8 mL/min (90-130); Glucose 93 mg/dL (65-115); Lipase 41 U/L (13-60); Osmolality Calculated 291 mOsm/kg (285-295); Sodium 141 mmol/L (136-145); Total Bilirubin 0.2 mg/dL (0.15-1.2); Total Protein 7.1 g/dL (6.6-8.7)
[2022-08-19 20:15] LABS: Anion Gap 14.6 (5-19); Potassium 4.6 mmol/L (3.5-5.1)
[2022-08-19] MEDS: ketorolac 30 mg/mL INJ 15 MG IVP (21:08)
[2022-08-19] MEDS: acetaminophen 500 mg Tablet 1000 MG PO (21:08)
[2022-08-19] MEDS: lidocaine 2% viscous 15 ML, aluminum-mag hydrox-simethicon 30 ML, sucralfate oral liq 1 GM PO (21:10)
--- NOTE | 2022-08-19 21:48 | ECG_ITS ---
[facility] Test Date: 2022-08-19 Pat Name: Narendra Harrison Department: Room: Gender: Male Field Recorder: : 2000 Requested By: Dave Mendez Order Number: [id number] Heath MD: ADAM ALEXIS Measurements Intervals [place] Rate: 60 P: 48 PA: 189 QRS: 13 QRSD: 94 T: 17 QT: 390 QTc: 391 Interpretive Statements SINUS RHYTHM WITH MARKED SINUS ARRHYTHMIA Compared to ECG 08/19/2022 19:29:08 No significant changes Electronically Signed On 08-20-2022 23:42:27 CDT by ADAM ALEXIS [id number]
[2022-08-19 22:15] LABS: Troponin 5 2HR Delta 0 ABS# (0-10)
== END 2022-08-19 22:19 | disposition home or self-care (01) ==
PROVIDERS: Emergency Provider Emergency Medicine; PCP Nurse Practitioner
DX: R07.89 Other chest pain (principal); J40 Bronchitis, not specified as acute or chronic
CPT/HCPCS: 71045; 80053; 81003; 83690; 84484; 85025; 85378; 93005; 96361; 96374; 99285; J1885; J7030

== ENCOUNTER 2022-08-24 07:50 | Emergency (ER) | payer MEDICAID, SELFPAY ==
[2022-08-24 07:50] VITALS: BP 135/97; PULSE 42; RESP 18; TEMP 36.6; O2SAT 100; BMI 28.7
--- NOTE | 2022-08-24 08:02 | W.ED.ABDPA2 ---
HPI - Abdominal Pain General: Chief Complaint: Abdominal Pain Stated Complaint: NAUSEA/ ABDOMINAL PAIN Time Seen by Provider: 08/24/22 07:51 Source: patient Mode of arrival: ambulatory Limitations: no limitations History of Present Illness: Patient is a 22-year-old male who presents to ED today with a complaint of right upper quadrant abdominal pain over the past few days. Patient states pain seems to radiate around into his back. Pain is worse with eating-especially greasy/fatty foods. He denies nausea, vomiting, diarrhea/bowel movements. He states he was told about a month ago he had cholelithiasis and was supposed to follow-up with general surgery however he did not have insurance. 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 He was seen at our facility several days ago for some complaints of chest pains. He has had multiple visits for chest pains previously and has had multiple cardiac work-ups. All of his previous troponins and EKGs are benign. He is not having any active chest pain currently. Denies shortness of breath or difficulty breathing. He does state on his last visit however he was diagnosed with bronchitis and placed on prednisone and azithromycin. MD elicited complaint: abdominal pain Pertinent past history: other (cholelithiasis) Onset (ago): day(s) Pain Consistency: constant Location: RUQ Severity: moderate Quality: aching and sharp Radiation: back Migration to: no migration Exacerbating factors: nothing Relieving factors: nothing Associated Symptoms: Denies chills, constipation, diarrhea, dysuria, fever(s), hematochezia, melena, nausea and vomiting Review of Systems Const: Denies: fever(s), chills, body aches, fatigue or malaise Card: Denies: chest pain Resp: Denies: dyspnea GI: Reports: abdominal pain; Denies: nausea, vomiting, diarrhea, constipation, hematochezia or melena : Denies: flank pain, difficulty urinating, dysuria, urinary frequency, urinary urgency or urinary hesitancy Musc: Denies: neck pain, back pain, extremity pain or joint pain Skin/Breast: Denies: rash Neuro: Denies: headache(s), numbness in extremities, weakness in extremities, sensory changes or dizziness [facility] ED PFSH: Medical History Bursitis and tendinitis of shoulder region Injury of right ankle and foot Muscle spasm of back Psychiatric care Surgical History No pertinent past surgical history Social History Alcohol intake: never Physical Exam Const: COMMON NORMALS: no acute distress, patient oriented x3, no limitations, alert and well nourished GENERAL APPEARANCE: cooperative NUTRITIONAL APPEARANCE: overweight ORIENTATION/CONSCIOUSNESS: Yes awake, Yes oriented to person, Yes oriented to place and Yes oriented to time HENMT: COMMON NORMALS: normocephalic and atraumatic HEAD & SCALP: normal to inspection, normocephalic and atraumatic Eye: COMMON NORMALS: no scleral icterus Chest: COMMONS NORMALS: normal inspection of the chest and normal palpation of entire chest wall Resp: COMMON NORMALS: normal respiratory effort and clear to auscultation bilaterally AUSCULTATION: clear to auscultation bilaterally Cardio: COMMON NORMALS: regular rate and regular rhythm RATE: regular rate RHYTHM: regular rhythm GI: COMMON NORMALS: Normal to inspection, nondistended, normoactive bowel sounds present, Soft to palpation, No hepatosplenomegaly present and no masses INSPECTION: Yes normal to inspection AUSCULTATION: Yes normoactive bowel sounds PALPATION: Yes Soft to palpation, Yes Tenderness to palpation present (GI) (RUQ), No Guarding due to palpation present (GI), No Rigid due to palpation and Yes No hepatosplenomegaly present : COMMON NORMALS: Yes no CVA tenderness BLADDER/KIDNEY EXAM: Yes no CVA tenderness Back/Pelvis: COMMON NORMALS: no CVA tenderness, thoracic and lumbar spine normal to inspection, no thoracic nor lumbar tenderness and thoraco-lumbar ROM normal Extremity: COMMON NORMALS: capillary refill normal, no clubbing, cyanosis or edema, no calf tenderness and no pedal edema Neuro: STEFFEN COMA SCALE: document GCS findings [place]ffen coma scale eye opening: Spontaneous [place] coma scale verbal response: Orientated [place] coma scale motor response: Obey commands Steffen coma scale total score: 15 COMMON NORMALS: patient oriented x3, moves all extremities, no focal motor deficits, no sensory deficits noted and gait normal SENSORIUM/ORIENTATION: Yes alert, Yes oriented to person, Yes oriented to place and Yes oriented to time Skin: COMMON NORMALS: no rashes or lesions noted GENERAL SKIN EXAM: no rashes or lesions noted Course Vital Signs: Vital signs: Vital Signs Temperature 97.8 F 08/24/22 07:50 Pulse Rate 40 L 08/24/22 08:26 Respiratory Rate 18 08/24/22 07:50 Blood Pressure 150/90 08/24/22 08:26 Pulse Oximetry 99 08/24/22 08:26 Oxygen Delivery Me thod 08/24/22 07:50 MDM - Abdominal Pain Medical Decision Making Patient here with RUQ abdominal pain worse after eating-especially greasy/fatty meals. He has had similar flares of pain previously. Blood work overall is unremarkable. He has a scantly elevated ALT at 63 remainder of LFTs are normal. This is probably secondary to fatty liver. US gallbladder is normal. technical intern did review his previous ultrasound performed last month that was reported as cholelithiasis and he feels like this was mis-reported as he only visualized a single gallbladder polyp. Symptoms do sound suspicious for biliary colic so I think following up with general surgery is still a good idea. Patient has been bradycardic throughout his entire stay. He does have a longstanding history of this ever since he was placed on Propranolol for hypertension. He does tell me he gets dizzy and lightheaded often. He states they chose this particular medication due to its dual treatment of HTN and anxiety. He states he would like to try something different to see if this helps with his heart rate/dizziness. All of patient's previous EKGs were reviewed. Discontinue the Propranolol and start him on lisinopril. Recommend blood pressure log and follow-up with primary care. Patient states he has Vistaril he can take for anxiety if this happens to worsen after discontinuing the Propranolol. Return to ED precautions given. Lab Data 08/24/22 08:15 08/24/22 08:15 Labs/Radiology: Radiology Impressions Gallbladder Ultrasound 08/24/22 08:04 IMPRESSION: Unremarkable right upper quadrant/gallbladder ultrasound. Laboratory Results WBC 10.8 10^3/uL (4.0-10.0) H 08/24/22 08:15 RBC 4.73 10^6/uL (4.1-5.3) 08/24/22 08:15 Hgb 14.3 g/dL (11.7-16.6) 08/24/22 08:15 Hct 40.6 % (42.0-52.0) L 08/24/22 08:15 MCV 85.8 fl (80-94) 08/24/22 08:15 MCH 30.2 pg (28.0-34.0) 08/24/22 08:15 MCHC 35.2 g/dL (30.0-36.0) 08/24/22 08:15 RDW 12.7 % (12.1-15.1) 08/24/22 08:15 Plt Count 267 10^3/cmm (130-400) 08/24/22 08:15 MPV 10.3 fL (7.4-10.4) 08/24/22 08:15 Neut % (Auto) 66.0 % 08/24/22 08:15 Lymph % (Auto) 26.6 % 08/24/22 08:15 [place] % (Auto) 5.3 % 08/24/22 08:15 Eos % (Auto) 0.7 % 08/24/22 08:15 Baso % (Auto) 0.4 % 08/24/22 08:15 Neut # (Auto) 7.12 10^3/uL (1.8-7.7) 08/24/22 08:15 Lymph # (Auto) 2.9 10^3/uL (0.8-4.8) 08/24/22 08:15 [place] # (Auto) 0.6 10^3/uL (0.2-0.9) 08/24/22 08:15 Eos # (Auto) 0.1 10^3/uL (0.0-0.8) 08/24/22 08:15 Baso # (Auto) 0.0 10^3/uL (0.0-0.1) 08/24/22 08:15 Nucleated RBC % (auto) 0 % 08/24/22 08:15 Nucleated RBCs # 0.0 /100WBC 08/24/22 08:15 Sodium 144 mmol/L (136-145) 08/24/22 08:15 Potassium 3.8 mmol/L (3.5-5.1) 08/24/22 08:15 Chloride 104 mmol/L (98-107) 08/24/22 08:15 Carbon Dioxide 27 mmol/L (22-29) 08/24/22 08:15 Anion Gap 16.8 (5-19) 08/24/22 08:15 BUN 16 mg/dL (6-20) 08/24/22 08:15 Creatinine 0.9 mg/dL (0.7-1.2) 08/24/22 08:15 GFR Calculation 103.7 mL/min (90-130) 08/24/22 08:15 Glucose 95 mg/dL (65-115) 08/24/22 08:15 Calculated Osmolality 299 mOsm/kg (285-295) H 08/24/22 08:15 Calcium 9.7 mg/dL (8.5-10.5) 08/24/22 08:15 Total Bilirubin 0.5 mg/dL (0.15-1.2) 08/24/22 08:15 AST 23 U/L (0-40) 08/24/22 08:15 ALT 63 U/L (0-41) H 08/24/22 08:15 Alkaline Phosphatase 59 U/L (40-130) 08/24/22 08:15 Total Protein 7.5 g/dL (6.6-8.7) 08/24/22 08:15 Albumin 4.7 g/dL (3.5-5.2) 08/24/22 08:15 Globulin 2.8 g/dL (1.3-4.6) 08/24/22 08:15 Lipase 34 U/L (13-60) 08/24/22 08:15 Urine Color Yellow (Yellow) 08/24/22 08:10 Urine Appearance Clear (CLEAR) 08/24/22 08:10 Urine pH 6.5 (5-7) 08/24/22 08:10 Ur Specific [place] 1.015 (1.005-1.030) 08/24/22 08:10 Urine Protein Neg (Negative) 08/24/22 08:10 Urine Glucose (UA) Norm (Normal) 08/24/22 08:10 Urine Ketones Negative (Negative) 08/24/22 08:10 Urine Blood Neg (Negative) 08/24/22 08:10 Urine Nitrate Negative (Negative) 08/24/22 08:10 Urine Bilirubin Neg (Negative) 08/24/22 08:10 Urine Urobilinogen Norm mg/dL (Negative) 08/24/22 08:10 Ur Leukocyte Esterase Negative (Negative) 08/24/22 08:10 Discharge Plan Discharge Patient Disposition: Home Clinical Impression: Biliary colic, Bradycardia Condition: Stable Prescriptions: New lisinopril 10 mg tablet 10 mg PO DAILY Qty: 30 0RF Discontinued propranolol 20 mg tablet 20 mg PO TID 30 Days Qty: 90 1RF No Action ibuprofen 800 mg tablet 800 mg PO Q8H PRN (Reason: pain) Qty: 90 0RF trazodone 50 mg tablet 25 mg PO BEDTIME PRN (Reason: insomnia) Qty: 30 0RF fluoxetine 20 mg Capsule 20 mg PO DAILY 30 Days Qty: 30 1RF hydroxyzine pamoate 25 mg Capsule 50 mg PO Q6H PRN (Reason: Anxiety) 30 Days Qty: 120 1RF omeprazole 40 mg capsule,delayed release(DR/EC) 40 mg PO DAILY 30 Days Qty: 30 1RF albuterol sulfate 90 mcg/actuation HFA aerosol inhaler 2 inh inhalation Q4H PRN (Reason: shortness of breath or wheezing) Qty: 8.5 0RF oxycodone 5 mg tablet 5 mg PO Q4H PRN (Reason: pain) Qty: 10 0RF Discharge Orders: Discharge ED (Routine); Ordered 08/24/22 Ordered By: Kasandra Carcamo Referrals: Jackie Irwin FNP [Primary Care Provider] - Patient Instructions: Biliary Colic (ED), Abdominal Pain (ED) Activity Restrictions/Additional Instructions: As we discussed I have placed a referral with general surgery for further evaluation of your right upper quadrant abdominal pain/biliary colic. Need to return to the emergency department for worsening or severe pain, repetitive episodes of vomiting or diarrhea, fevers, yellowing to your skin or eyes, or any other concerns you may have. As we discussed I am discontinuing your propranolol secondary to the side effect of bradycardia as you have mentioned you have been getting dizzy and lightheaded. I will switch you to lisinopril. Please keep a blood pressure log (twice daily) follow-up with your primary care provider in 1 to 2 weeks so they can tailor dose based on response. Coding Level of Care Code ED Coding File Clerk for Zahraa Desai
--- NOTE | 2022-08-24 08:04 | US_ITS ---
WS: [id number] ABDOMINAL ULTRASOUND LIMITED REASON FOR EXAM: RUQ pain COMPARISON: None available. ORDER DATE: 08/24/2022 8:07 AM TECHNIQUE: Grayscale and Doppler ultrasound examination of the abdomen. FINDINGS: Pancreas: Obscured by central abdominal bowel gas Abdominal aorta and IVC: Obscured by bowel gas Liver: Liver measures 17.3 cm in length. No focal abnormality or bile duct dilatation. Gallbladder: Unremarkable. Gallbladder wall thickness measures 0.3 mm. Common bile duct measures 3.6 mm in width Right kidney: Right kidney measures 11.8 cm x 5.8 cm x 5.4 cm. Normal renal vascularity noted. US/US gall bladder [id number] IMPRESSION: Unremarkable right upper quadrant/gallbladder ultrasound.
[2022-08-24 08:26] VITALS: BP 150/90; PULSE 40; O2SAT 99
[2022-08-24 08:40] LABS: Basophils % 0.4 %; Eosinophils # 0.1 10^3/uL (0.0-0.8); Eosinophils % 0.7 %; Hematocrit 40.6 % (42.0-52.0); Hemoglobin 14.3 g/dL (11.7-16.6); Lymphocytes # 2.9 10^3/uL (0.8-4.8); Lymphocytes % 26.6 %; Mean Corpuscular HGB Conc 35.2 g/dL (30.0-36.0); Mean Corpuscular Hemoglobin 30.2 pg (28.0-34.0); Mean Corpuscular Volume 85.8 fl (80-94); Mean Platelet Volume 10.3 fL (7.4-10.4); Monocytes # 0.6 10^3/uL (0.2-0.9); Monocytes % 5.3 %; Neutrophils # 7.12 10^3/uL (1.8-7.7); Nucleated Red Blood Cells % 0 %; Platelet Count 267 10^3/cmm (130-400); Red Blood Count 4.73 10^6/uL (4.1-5.3); Red Cell Distribution Width 12.7 % (12.1-15.1); White Blood Count 10.8 10^3/uL (4.0-10.0)
[2022-08-24 08:56] LABS: Add Urine Microscopic? NO; Charge for UA Resulting for Rev
[2022-08-24 09:16] LABS: Bilirubin Urine Neg (Negative); Blood Urine Neg (Negative); Glucose Urine UA Norm (Normal); Ketones Urine Negative (Negative); Leukocyte Esterase Urine Negative (Negative); Nitrate Urine Negative (Negative); Protein Urine Neg (Negative); Specific Gravity, Urine 1.015 (1.005-1.030); Urine Appearance Clear (CLEAR); Urine Color Yellow (Yellow); Urobilinogen Urine Norm (Negative); pH Urine 6.5 (5-7)
[2022-08-24 09:20] LABS: Alanine Aminotransferase 63 U/L (0-41); Albumin Level 4.7 g/dL (3.5-5.2); Alkaline Phosphatase 59 U/L (40-130); Anion Gap 16.8 (5-19); Aspartate Amino Transferase 23 U/L (0-40); Blood Urea Nitrogen 16 mg/dL (6-20); Calcium 9.7 mg/dL (8.5-10.5); Carbon Dioxide 27 mmol/L (22-29); Chloride 104 mmol/L (98-107); Globulin 2.8 g/dL (1.3-4.6); Glomerular Filtration Rate 103.7 mL/min (90-130); Glucose 95 mg/dL (65-115); Lipase 34 U/L (13-60); Osmolality Calculated 299 mOsm/kg (285-295); Potassium 3.8 mmol/L (3.5-5.1); Sodium 144 mmol/L (136-145); Total Bilirubin 0.5 mg/dL (0.15-1.2); Total Protein 7.5 g/dL (6.6-8.7)
[2022-08-24 09:59] VITALS: BP 140/93; PULSE 53; O2SAT 99
--- NOTE | 2022-08-24 10:56 | DCPLANNER ---
Addendum entered by Henny Win 08/30/22 08:27: military technology manager received the following message from general surgery regarding follow up appointment: Spoke with patient & he stated he does not have insurance.. He stated he has turned in his FA papers and once he is approved, he will call to schedule Addendum entered by Henny Win 08/25/22 07:26: military technology manager received the following message from general surgery regarding follow up appointment: called in she state they have [employer], They do not have a member number. Told her we need a member number or he will owe the 100 dollar co pay. Told her to call back with the number and we can get him scheduled. ? Original Note: military technology manager had message to schedule a follow up appointment for patient with general surgery. military technology manager sent patients information to the front office staff at general surgery. Patients information will be reviewed, clinic will call patient with appointment information.
== END 2022-08-24 09:55 | disposition home or self-care (01) ==
PROVIDERS: Emergency Provider Physician Assistant; PCP Nurse Practitioner
DX: K80.50 Calculus of bile duct without cholangitis or cholecystitis without obstruction (principal); R00.1 Bradycardia, unspecified
CPT/HCPCS: 76705; 80053; 81003; 83690; 85025; 99284

== ENCOUNTER 2022-08-28 23:38 | Emergency (ER) | payer MEDICAID, SELFPAY ==
[2022-08-28 23:59] VITALS: BP 150/78; PULSE 82; RESP 24; TEMP 36.7; O2SAT 98; BMI 28.7
[2022-08-29] MEDS: OLANZapine 10 mg ODT PO (02:02)
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
[2022-08-29] MEDS: diphenhydrAMINE 25 mg Capsule PO ×2 (02:57→04:18)
[2022-08-29] MEDS: ibuprofen 200 mg Tablet 400 MG PO (02:57)
[2022-08-29] MEDS: acetaminophen 500 mg Tablet 1000 MG PO (02:57)
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
[2022-08-29 03:01] VITALS: BP 145/77; RESP 18; O2SAT 99
[2022-08-29] MEDS: oxyCODONE 5 mg IR Tab/Cap PO (04:18)
[2022-08-29 04:21] VITALS: BP 132/82
[2022-08-29 04:23] VITALS: PULSE 80; RESP 14; O2SAT 98
--- NOTE | 2022-09-07 14:18 | DCPLANNER ---
surgical services manager called patient due to no primary care physician - no answer at this time
== END 2022-08-29 04:23 | disposition home or self-care (01) ==
PROVIDERS: Emergency Provider General Practice
DX: R51.9 Headache, unspecified (principal)
CPT/HCPCS: 70450; 99284

== ENCOUNTER 2022-08-30 17:06 | Emergency (ER) | payer MEDICAID, SELFPAY ==
[2022-08-30 17:09] VITALS: BP 159/97; PULSE 106; RESP 18; TEMP 36.3; O2SAT 97; BMI 28.7
--- NOTE | 2022-08-30 17:17 | ECG_ITS ---
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 Measurements Intervals [place] Rate: 99 P: 66 ID: 120 QRS: 85 QRSD: 91 T: 5 QT: 329 QTc: 422 Interpretive Statements SINUS RHYTHM POSSIBLE ANTERIOR MYOCARDIAL INFARCTION , OF INDETERMINATE AGE [30 ms Q WAVE IN V3/V4, OR R < 0.2 mV IN V4] Nonspecific T wave changes Compared to ECG 08/19/2022 21:48:24 Myocardial infarct finding now present Sinus arrhythmia no longer present Electronically Signed On 08-31-2022 0:33:48 CDT by Daron Pavon M.D. [email or web address]
[2022-08-30 20:14] VITALS: BP 129/80; PULSE 89; TEMP 36.8; O2SAT 98
--- NOTE | 2022-08-30 20:46 | ED_ITS ---
HPI - Dizziness General: Chief Complaint: Dizziness Stated Complaint: Dizziness, High HR Time Seen by Provider: 08/30/22 20:38 History of Present Illness: HPI Narrative: 22-year-old male patient comes in today with complaints of dizziness. Patient also reports a headache with pain in the back of the neck. Patient appears nontoxic. Patient has been evaluated in the emergency room approximately 2 to 3 days ago and then at primary care office. Review of the record noted no abnormalities that were noted on CT of the head or with laboratory values. Patient has a history of biliary colic, general anxiety disorder, major depression, and headaches Associated symptoms: Reports headache(s); Denies chest pain, nausea or vomiting Review of Systems Const: Denies: fever(s) ENMT: Reports: ear or mastoid pain Card: Denies: chest pain Resp: Denies: dyspnea GI: Denies: nausea, vomiting, diarrhea or constipation Musc: Reports: neck pain Skin/Breast: Denies: rash Neuro: Reports: headache(s) PFS ED PFSH: Medical History Bursitis and tendinitis of shoulder region Injury of right ankle and foot Muscle spasm of back Psychiatric care Surgical History No pertinent past surgical history Social History Alcohol intake: never Physical Exam Const: COMMON NORMALS: alert HENMT: HEAD & SCALP: normal to inspection TYMPANIC MEMBRANE: TM abnormal TM laterality: right Details: fluid behind TM and left Details: dull, erythematous and fluid behind TM Eye: COMMON NORMALS: Equal, round and reactive pupils present PUPIL: Yes Equal, round and reactive pupils present Neck/C-Spine: CERVICAL SPINE: No Cervical spine tenderness and Yes Paracervical muscle tenderness Resp: COMMON NORMALS: normal respiratory effort and clear to auscultation bilaterally AUSCULTATION: clear to auscultation bilaterally Cardio: COMMON NORMALS: regular rate and regular rhythm RATE: regular rate RHYTHM: regular rhythm GI: COMMON NORMALS: Soft to palpation and non-tender PALPATION: Yes Soft to palpation Neuro: SENSORIUM/ORIENTATION: Yes alert Skin: COMMON NORMALS: turgor normal GENERAL SKIN EXAM: turgor normal Course Vital Signs: Vital signs: Vital Signs Temperature 98.3 F 08/30/22 20:14 Pulse Rate 89 08/30/22 20:14 Respiratory Rate 18 08/30/22 17:09 Blood Pressure 129/80 08/30/22 20:14 Pulse Oximetry 96 08/30/22 21:21 Oxygen Delivery Me thod 08/30/22 21:21 MDM - Dizziness Medical Decision Making 22-year-old male patient comes in today with complaints of headache and dizziness. On exam patient appears nontoxic. Lungs are clear to auscultation. Abdomen soft nontender. Patient does have some paraspinous tenderness of the cervical neck. Left tympanic membrane was erythematous and dull. Patient does have fluid behind both TMs. Patient denies any sinus drainage or congestion. No nystagmus was noted with leaning the head back and turning to the right and left. No focal neural deficits were noted. Vital signs were normal. Differential diagnosis includes but not limited to BPV, M?ni?re's disease, otitis media, malingering, anxiety disorder. Suspect patient probably has otiti s serous that may be causing some dizziness with position change. Patient states that he has been treated several times for ear infections over the past 6 months. We will refer patient to ENT for further evaluation and treatment of otitis serous. Patient was treated in the ER for headache and otitis serous. Lab Data 08/30/22 21:20 08/30/22 21:20 Laboratory Results WBC 12.0 10^3/uL (4.0-10.0) H 08/30/22 21:20 RBC 4.63 10^6/uL (4.1-5.3) 08/30/22 21:20 Hgb 14.0 g/dL (11.7-16.6) 08/30/22 21:20 Hct 40.2 % (42.0-52.0) L 08/30/22 21:20 MCV 86.8 fl (80-94) 08/30/22 21:20 MCH 30.2 pg (28.0-34.0) 08/30/22 21:20 MCHC 34.8 g/dL (30.0-36.0) 08/30/22 21:20 RDW 13.0 % (12.1-15.1) 08/30/22 21:20 Plt Count 252 10^3/cmm (130-400) 08/30/22 21:20 MPV 10.2 fL (7.4-10.4) 08/30/22 21:20 Neut % (Auto) 56.8 % 08/30/22 21:20 Lymph % (Auto) 32.0 % 08/30/22 21:20 [place] % (Auto) 8.3 % 08/30/22 21:20 Eos % (Auto) 0.8 % 08/30/22 21:20 Baso % (Auto) 0.5 % 08/30/22 21:20 Neut # (Auto) 6.80 10^3/uL (1.8-7.7) 08/30/22 21:20 Lymph # (Auto) 3.8 10^3/uL (0.8-4.8) 08/30/22 21:20 [place] # (Auto) 1.0 10^3/uL (0.2-0.9) H 08/30/22 21:20 Eos # (Auto) 0.1 10^3/uL (0.0-0.8) 08/30/22 21:20 Baso # (Auto) 0.1 10^3/uL (0.0-0.1) 08/30/22 21:20 Nucleated RBC % (auto) 0 % 08/30/22 21:20 Nucleated RBCs # 0.0 /100WBC 08/30/22 21:20 Sodium 140 mmol/L (136-145) 08/30/22 21:20 Potassium 3.9 mmol/L (3.5-5.1) 08/30/22 21:20 Chloride 103 mmol/L (98-107) 08/30/22 21:20 Carbon Dioxide 25 mmol/L (22-29) 08/30/22 21:20 Anion Gap 15.9 (5-19) 08/30/22 21:20 BUN 19 mg/dL (6-20) 08/30/22 21:20 Creatinine 0.9 mg/dL (0.7-1.2) 08/30/22 21:20 GFR Calculation 103.7 mL/min (90-130) 08/30/22 21:20 Glucose 95 mg/dL (65-115) 08/30/22 21:20 Calculated Osmolality 292 mOsm/kg (285-295) 08/30/22 21:20 Calcium 9.4 mg/dL (8.5-10.5) 08/30/22 21:20 Total Bilirubin 0.3 mg/dL (0.15-1.2) 08/30/22 21:20 AST 25 U/L (0-40) 08/30/22 21:20 ALT 65 U/L (0-41) H 08/30/22 21:20 Alkaline Phosphatase 61 U/L (40-130) 08/30/22 21:20 Total Protein 7.0 g/dL (6.6-8.7) 08/30/22 21:20 Albumin 4.3 g/dL (3.5-5.2) 08/30/22 21:20 Globulin 2.7 g/dL (1.3-4.6) 08/30/22 21:20 Discharge Plan Discharge Patient Disposition: Home Clinical Impression: Recurrent vestibular neuritis of left ear Otitis media, serous Qualifiers: Chronicity: unspecified Laterality: left Qualified Code(s): H65.92 - Unspecified nonsuppurative otitis media, left ear Condition: Stable Prescriptions: New prednisone 20 mg tablet 20 mg PO BID 7 Days Qty: 14 0RF cefdinir 300 mg capsule 300 mg PO BID 7 Days Qty: 14 0RF No Action ibuprofen 800 mg tablet 800 mg PO Q8H PRN (Reason: pain) Qty: 90 0RF trazodone 50 mg tablet 25 mg PO BEDTIME PRN (Reason: insomnia) Qty: 30 0RF sumatriptan succinate 25 mg tablet See Rx Instructions PO .COMPLEX Qty: 10 0RF Rx Instructions: take 1 tab at onset of headache; if no relief may repeat 1 tab after at least 2 hrs; max = 4 tabs/24 hr PO fluoxetine 20 mg Capsule 20 mg PO DAILY 30 Days Qty: 30 1RF hydroxyzine pamoate 25 mg Capsule 50 mg PO Q6H PRN (Reason: Anxiety) 30 Days Qty: 120 1RF omeprazole 40 mg capsule,delayed release(DR/EC) 40 mg PO DAILY 30 Days Qty: 30 1RF lisinopril 10 mg tablet 10 mg PO DAILY Qty: 30 0RF albuterol sulfate 90 mcg/actuation HFA aerosol inhaler 2 inh inhalation Q4H PRN (Reason: shortness of breath or wheezing) Qty: 8.5 0RF oxycodone 5 mg tablet 5 mg PO Q4H PRN (Reason: pain) Qty: 10 0RF Discharge Orders: Discharge ED (Routine); Ordered 08/30/22 Ordered By: Rk Mitchell Referrals: Jackie Irwin FNP [Primary Care Provider] - Discharge Diet: Usual diet Discharge Activity: Increase activity as tolerated Patient Instructions: Fluid In The Ear (Serous Otitis Media) (ED) Activity Restrictions/Additional Instructions: Home and rest. Drink plenty of water and fluids. Change positions slowly. Case management will contact you regarding follow-up appointment with director learning and development for further evaluation of your recurrent ear infection. Follow-up with primary care as needed. Return to ED for new concerns. Coding Level of Care Code ED Lehr Cutter for Zahraa Desai
[2022-08-30] MEDS: sodium chloride 0.9% 1,000 ML 999 ML IV (21:08)
[2022-08-30] MEDS: metoclopramide 5 mg/mL SDV 2 mL 10 MG IVP (21:11)
[2022-08-30] MEDS: ketorolac 30 mg/mL INJ 15 MG IVP (21:11)
[2022-08-30] MEDS: dexamethasone 10 mg/mL INJ IVP (21:15)
[2022-08-30 21:21] VITALS: O2SAT 96
[2022-08-30 21:27] LABS: Basophils # 0.1 10^3/uL (0.0-0.1); Basophils % 0.5 %; Eosinophils # 0.1 10^3/uL (0.0-0.8); Eosinophils % 0.8 %; Hematocrit 40.2 % (42.0-52.0); Lymphocytes # 3.8 10^3/uL (0.8-4.8); Mean Corpuscular HGB Conc 34.8 g/dL (30.0-36.0); Mean Corpuscular Hemoglobin 30.2 pg (28.0-34.0); Mean Corpuscular Volume 86.8 fl (80-94); Mean Platelet Volume 10.2 fL (7.4-10.4); Monocytes % 8.3 %; Neutrophils % 56.8 %; Nucleated Red Blood Cells % 0 %; Platelet Count 252 10^3/cmm (130-400); Red Blood Count 4.63 10^6/uL (4.1-5.3)
[2022-08-30] MEDS: cefTRIAXone 1,000 MG in sodium chloride 0.9% (plus) 50 ML 100 MG IV (21:33)
[2022-08-30 21:40] LABS: Alanine Aminotransferase 65 U/L (0-41); Albumin Level 4.3 g/dL (3.5-5.2); Alkaline Phosphatase 61 U/L (40-130); Anion Gap 15.9 (5-19); Aspartate Amino Transferase 25 U/L (0-40); Blood Urea Nitrogen 19 mg/dL (6-20); Calcium 9.4 mg/dL (8.5-10.5); Carbon Dioxide 25 mmol/L (22-29); Chloride 103 mmol/L (98-107); Globulin 2.7 g/dL (1.3-4.6); Glomerular Filtration Rate 103.7 mL/min (90-130); Glucose 95 mg/dL (65-115); Osmolality Calculated 292 mOsm/kg (285-295); Potassium 3.9 mmol/L (3.5-5.1); Sodium 140 mmol/L (136-145); Total Bilirubin 0.3 mg/dL (0.15-1.2)
[2022-08-30 22:33] VITALS: BP 105/67; PULSE 72; RESP 18; O2SAT 97
--- NOTE | 2022-08-31 09:57 | DCPLANNER ---
Addendum entered by Henny Win 09/01/22 07:53: credit risk analytics manager received the following message from the office staff at [facility] regarding follow up appointment: Spoke with patient & he stated he does not have insurance.. He stated he has turned in his FA papers and once he is approved, he will call to schedule Addendum entered by Henny Win 08/31/22 11:33: credit risk analytics manager received the following message from the front office staff at [facility] regarding follow up appointment: Spoke with patient & he stated he does not have insurance.. He stated he has turned in his FA papers and once he is approved, he will call to schedule Original Note: credit risk analytics manager had message to schedule a follow up appointment for patient with ENT. credit risk analytics manager sent patients information to the front office staff at ENT. Patients information will be printed and reviewed. Clinic will call patient with appointment information.
== END 2022-08-30 22:34 | disposition home or self-care (01) ==
PROVIDERS: Emergency Provider Nurse Practitioner Family; PCP Nurse Practitioner
DX: H65.02 Acute serous otitis media, left ear (principal); G58.8 Other specified mononeuropathies
CPT/HCPCS: 80053; 85025; 93005; 96365; 96375; 99284; J0696; J1100; J1885; J2765; J7030

== ENCOUNTER 2022-09-04 15:06 | Emergency (ER) | payer BC, MEDICAID, SELFPAY ==
[2022-09-04 15:07] VITALS: BP 167/61; PULSE 95; RESP 16; TEMP 36.6; O2SAT 96; BMI 28.7
[2022-09-04 15:34] VITALS: BP 138/93; PULSE 77; RESP 16; O2SAT 98
--- NOTE | 2022-09-04 15:46 | ED_ITS ---
Documented by User: NURIA Heller 09/04/22 16:29 HPI - Dizziness General: Chief Complaint: Dizziness Stated Complaint: Dizzy, Lighthead, Indigestion Time Seen by Provider: 09/04/22 15:08 History of Present Illness: HPI Narrative: Mr. Harrison is a 22-year-old man that presents to the emergency department with complaints of dizziness, anxiety, abdominal discomfort. Patient is been having the symptoms for approximately 2 months and has been seen multiple times in the emergency department. Patient has undergone diagnostic work-up through those visits. Patient reports he woke this morning with dizziness malaise and diffuse abdominal discomfort. It became worse after eating. He denies any nausea vomiting or diarrhea. Patient's last bowel movement was yesterday. He says he has frequent bowel movements and they are semisoft. Denies any fever chills chest pain. He denies any hematuria but may have some dysuria. . Patient has been evaluated in the emergency department and referred to primary care and behavioral health. He has also undergone a ultrasound of his gallbladder which reveals gallstones but no acute cholelithiasis Associated symptoms: Denies change in hearing, chest pain, chills, ear discharge, headache(s), malaise, nausea, nasal congestion, palpitations, tinnitus or vomiting Associated neuro symptoms: Deny confusion, dysphagia or numbness in extremities Review of Systems General: Reports: 10 or more systems reviewed and unremarkable except in HPI and below Const: Denies: fever(s), chills, change in appetite, change in weight, fatigue or malaise Eyes: Denies: change in vision, eye discomfort, eye discharge or eye redness ENMT: Denies: throat pain, enlarged tonsils, odynophagia, hoarseness, ear or mastoid pain, ear discharge, change in hearing, tinnitus, nasal discharge, nasal congestion, post nasal drip or sinus pain Card: Denies: chest pain, palpitations, irregular heart rhythm, edema, dyspnea on exertion, orthopnea or leg pain with exertion Resp: Reports: dyspnea; Denies: productive cough, non-productive cough, wheezing, stridor or chest congestion GI: Reports: abdominal pain; Denies: nausea, vomiting, dysphagia, diarrhea, constipation, bloating, GI cramping or hematochezia : Denies: flank pain, dysuria, urinary frequency, urinary urgency, urinary hesitancy, oliguria or hematuria Musc: Denies: neck pain, back pain, extremity pain, joint pain, joint swelling, joint redness, joint warmth or muscle weakness Skin/Breast: Denies: rash, pruritus, erythema, photosensitivity or new lesions Neuro: Denies: headache(s), numbness in extremities, weakness in extremities, sensory changes, lack of coordination, difficulty walking, frequent falls, dizziness, confusion, Slurred speech present, difficulty communicating thoughts, seizure-like activity or involuntary movements Endo: Denies: polyuria, polydipsia or tired all the time Sarbjit/Lymph: Denies: easy bruising or easy bleeding PFSH ED PFSH: Medical History Bursitis and tendinitis of shoulder region Injury of right ankle and foot Muscle spasm of back Psychiatric care Surgical History No pertinent past surgical history Social History Alcohol intake: never Physical Exam Const: COMMON NORMALS: no acute distress, patient oriented x3 and alert GENERAL APPEARANCE: cooperative ORIENTATION/CONSCIOUSNESS: Yes awake, Yes oriented to person, Yes oriented to place and Yes oriented to time HENMT: COMMON NORMALS: normocephalic and atraumatic HEAD & SCALP: normocephalic and atraumatic FACE & SINUS: normal facial exam MOUTH: Normal oral and palatal mucosa present THROAT: posterior oropharynx normal Eye: COMMON NORMALS: Equal, round and reactive pupils present, EOMs intact bilaterally, conjunctivae normal and no scleral icterus GENERAL EYE: appearance normal, both eyes and all related structures ALIGNMENT: Yes alignment normal PERIORBITAL: periorbital findings normal CONJUNCTIVA: Yes conjunctivae normal PUPIL: Yes Equal, round and reactive pupils present Neck/C-Spine: COMMON NORMALS: full ROM GENERAL: Yes normal visual inspection Lymph: LYMPHATIC: no lymphadenopathy noted Chest: COMMONS NORMALS: normal inspection of the chest Breast/axilla inspection: Yes no chest deformity, asymmetry, normal contours, no nodules, masses, tenderness Resp: COMMON NORMALS: normal respiratory effort, No retractions, No use of accessory muscles and clear to auscultation bilaterally EFFORT & INSPECTION: Yes able to speak in complete sentences and Yes symmetric chest movement AUSCULTATION: clear to auscultation bilaterally Cardio: COMMON NORMALS: regular rate, regular rhythm and Peripheral pulses 2+ throughout RATE: regular rate RHYTHM: regular rhythm PERIPHERAL PULSES: Peripheral pulses 2+ throughout GI: COMMON NORMALS: Normal to inspection, nondistended, normoactive bowel sounds present, Soft to palpation and No hepatosplenomegaly present INSPECTION: Yes normal to inspection AUSCULTATION: Yes normoactive bowel sounds PALPATION: Yes Soft to palpation, Yes Tenderness to palpation present (GI) (Diffuse) and Yes No hepatosplenomegaly present RECTAL EXAM: Yes deferred Extremity: COMMON NORMALS: normal to inspection GENERAL: Yes normal exam except as noted Neuro: COMMON NORMALS: patient oriented x3 SENSORIUM/ORIENTATION: Yes alert, Yes oriented to person, Yes oriented to place and Yes oriented to time CRANIAL NERVES: Yes CN normal except as noted Psych: COMMON NORMALS: mental status grossly normal, Normal thought process present, cooperative, speech normal, activity/motor behavior normal, denies homicidal ideation and denies suicidal ideation APPEARANCE: Yes grossly normal ATTITUDE: Yes calm ACTIVITY/MOTOR BEHAVIOR: Yes appropriate eye contact SPEECH: Yes normal speech MOOD & AFFECT: Yes anxious THOUGHT PROCESS: Normal thought process present Skin: COMMON NORMALS: no rashes or lesions noted, no wounds and turgor normal GENERAL SKIN EXAM: no rashes or lesions noted and turgor normal Course Vital Signs: Vital signs: Vital Signs Temperature 97.8 F 09/04/22 15:07 Pulse Rate 78 09/04/22 16:07 Respiratory Rate 16 09/04/22 16:07 Blood Pressure 133/68 09/04/22 16:07 Pulse Oximetry 98 09/04/22 16:07 Oxygen Delivery Me thod 09/04/22 16:07 MDM - Dizziness Medical Decision Making Differential diagnosis includes cholelithiasis, cholecystitis, anxiety. Patient has been evaluated in the emergency department numerous times over the last 2 months. He arrives with the same complaints of mild dizziness and abdominal discomfort. Patient did undergo extensive work-up by previous providers at [facility]. Patient has been instructed to follow-up with primary care to have his potential bladder disease evaluated. Patient has yet to follow-up with them. Prior to initiating orders I did speak with one of the attendings who had seen him previously. Dr. Ahuja has advised to forego any extensive work-up. I opted for a urinalysis and 2 mg of Ativan at my attending suggestion. Patient needs to follow-up with primary care and seek additional evaluation with a HIDA scan. Patient to discharge home and return to the emergency department for new concerning or worsening symptom Lab Data Laboratory Results Urine Color Yellow (Yellow) 09/04/22 15:45 Urine Appearance Clear (CLEAR) 09/04/22 15:45 Urine pH 6 (5-7) 09/04/22 15:45 Ur Specific [place] 1.020 (1.005-1.030) 09/04/22 15:45 Urine Protein Neg (Negative) 09/04/22 15:45 Urine Glucose (UA) Norm (Normal) 09/04/22 15:45 Urine Ketones Negative (Negative) 09/04/22 15:45 Urine Blood Neg (Negative) 09/04/22 15:45 Urine Nitrate Negative (Negative) 09/04/22 15:45 Urine Bilirubin Neg (Negative) 09/04/22 15:45 Urine Urobilinogen Norm mg/dL (Negative) 09/04/22 15:45 Ur Leukocyte Esterase Negative (Negative) 09/04/22 15:45 Discharge Plan Discharge Patient Disposition: Home Clinical Impression: Anxiety Condition: Stable Prescriptions: No Action trazodone 50 mg tablet 50 mg PO DAILY PRN (Reason: insomnia) Qty: 30 0RF ibuprofen 800 mg tablet 800 mg PO Q8H PRN (Reason: pain) Qty: 90 0RF sumatriptan succinate 25 mg tablet See Rx Instructions PO .COMPLEX Qty: 10 0RF Rx Instructions: take 1 tab at onset of headache; if no relief may repeat 1 tab after at least 2 hrs; max = 4 tabs/24 hr PO fluoxetine 20 mg Capsule 20 mg PO DAILY 30 Days Qty: 30 1RF hydroxyzine pamoate 25 mg Capsule 50 mg PO Q6H PRN (Reason: Anxiety) 30 Days Qty: 120 1RF omeprazole 40 mg capsule,delayed release(DR/EC) 40 mg PO DAILY 30 Days Qty: 30 1RF lisinopril 10 mg tablet 10 mg PO DAILY Qty: 30 0RF prednisone 20 mg tablet 20 mg PO BID 7 Days Qty: 14 0RF cefdinir 300 mg capsule 300 mg PO BID 7 Days Qty: 14 0RF albuterol sulfate 90 mcg/actuation HFA aerosol inhaler 2 inh inhalation Q4H PRN (Reason: shortness of breath or wheezing) Qty: 8.5 0RF Discharge Orders: Discharge ED (Routine); Ordered 09/04/22 Ordered By: Nayeli Gruber Referrals: Jackie Irwin FNP [Primary Care Provider] - Discharge Diet: Advance as tolerated Discharge Activity: Resume usual activity Patient Instructions: Opioid Safety, Pain Management Activity Restrictions/Additional Instructions: Please follow-up with primary care doctor as discussed. The recommended test is a HIDA scan. This is done outpatient. Please avoid fatty foods Void any marijuana or recreational drugs as this can make anxiety and abdominal pain worse Please return to the emergency department for new concerning or worsening symptoms. Coding Level of Care Code ED [employer] Supervisor for Chg Fwd Documented by User: Louie Goodwin DO 09/05/22 07:52 HPI - Dizziness General: Chief Complaint: Dizziness Stated Complaint: Dizzy, Light[place], Indigestion Time Seen by Provider: 09/04/22 15:08 PFSH ED PFSH: Medical History Bursitis and tendinitis of shoulder region Injury of right ankle and foot Muscle spasm of back Psychiatric care Surgical History No pertinent past surgical history Social History Alcohol intake: never Course Vital Signs: Vital signs: Vital Signs Temperature 97.8 F 09/04/22 15:07 Pulse Rate 78 09/04/22 16:07 Respiratory Rate 16 09/04/22 16:07 Blood Pressure 133/68 09/04/22 16:07 Pulse Oximetry 98 09/04/22 16:07 Oxygen Delivery Me thod 09/04/22 16:07 MDM - Dizziness Medical Decision Making Differential diagnosis includes cholelithiasis, cholecystitis, anxiety. Patient has been evaluated in the emergency department numerous times over the last 2 months. He arrives with the same complaints of mild dizziness and abdominal discomfort. Patient did undergo extensive work-up by previous providers at [facility]. Patient has been instructed to follow-up with primary care to have his pote ntial bladder disease evaluated. Patient has yet to follow-up with them. Prior to initiating orders I did speak with one of the attendings who had seen him previously. Dr. Ahuja has advised to forego any extensive work-up. I opted for a urinalysis and 2 mg of Ativan at my attending suggestion. Patient needs to follow-up with primary care and seek additional evaluation with a HIDA scan. Patient to discharge home and return to the emergency department for new concerning or worsening symptom Chart reviewed and patient discussed with midlevel. Agree with assessment and plan. Lab Data Laboratory Results Urine Color Yellow (Yellow) 09/04/22 15:45 Urine Appearance Clear (CLEAR) 09/04/22 15:45 Urine pH 6 (5-7) 09/04/22 15:45 Ur Specific [place] 1.020 (1.005-1.030) 09/04/22 15:45 Urine Protein Neg (Negative) 09/04/22 15:45 Urine Glucose (UA) Norm (Normal) 09/04/22 15:45 Urine Ketones Negative (Negative) 09/04/22 15:45 Urine Blood Neg (Negative) 09/04/22 15:45 Urine Nitrate Negative (Negative) 09/04/22 15:45 Urine Bilirubin Neg (Negative) 09/04/22 15:45 Urine Urobilinogen Norm mg/dL (Negative) 09/04/22 15:45 Ur Leukocyte Esterase Negative (Negative) 09/04/22 15:45 Discharge Plan Discharge Patient Disposition: Home Clinical Impression: Anxiety Condition: Stable Prescriptions: No Action trazodone 50 mg tablet 50 mg PO DAILY PRN (Reason: insomnia) Qty: 30 0RF ibuprofen 800 mg tablet 800 mg PO Q8H PRN (Reason: pain) Qty: 90 0RF sumatriptan succinate 25 mg tablet See Rx Instructions PO .COMPLEX Qty: 10 0RF Rx Instructions: take 1 tab at onset of headache; if no relief may repeat 1 tab after at least 2 hrs; max = 4 tabs/24 hr PO fluoxetine 20 mg Capsule 20 mg PO DAILY 30 Days Qty: 30 1RF hydroxyzine pamoate 25 mg Capsule 50 mg PO Q6H PRN (Reason: Anxiety) 30 Days Qty: 120 1RF omeprazole 40 mg capsule,delayed release(DR/EC) 40 mg PO DAILY 30 Days Qty: 30 1RF lisinopril 10 mg tablet 10 mg PO DAILY Qty: 30 0RF prednisone 20 mg tablet 20 mg PO BID 7 Days Qty: 14 0RF cefdinir 300 mg capsule 300 mg PO BID 7 Days Qty: 14 0RF albuterol sulfate 90 mcg/actuation HFA aerosol inhaler 2 inh inhalation Q4H PRN (Reason: shortness of breath or wheezing) Qty: 8.5 0RF Discharge Orders: Discharge ED (Routine); Ordered 09/04/22 Ordered By: Nayeli Gruber Referrals: Jackie Irwin FNP [Primary Care Provider] - Discharge Diet: Advance as tolerated Discharge Activity: Resume usual activity Patient Instructions: Opioid Safety, Pain Management Activity Restrictions/Additional Instructions: Please follow-up with primary care doctor as discussed. The recommended test is a HIDA scan. This is done outpatient. Please avoid fatty foods Void any marijuana or recreational drugs as this can make anxiety and abdominal pain worse Please return to the emergency department for new concerning or worsening symptoms. Coding Level of Care Code ED [employer] Supervisor for Zahraa Desai
[2022-09-04] MEDS: LORazepam 2 mg/mL INJ 1 mL IVP (16:04)
[2022-09-04 16:07] VITALS: BP 133/68; PULSE 78; RESP 16; O2SAT 98
[2022-09-04 16:37] LABS: Add Urine Microscopic? NO; Charge for UA Resulting for Rev
[2022-09-04 16:46] LABS: Bilirubin Urine Neg (Negative); Blood Urine Neg (Negative); Glucose Urine UA Norm (Normal); Ketones Urine Negative (Negative); Leukocyte Esterase Urine Negative (Negative); Nitrate Urine Negative (Negative); Protein Urine Neg (Negative); Urine Appearance Clear (CLEAR); Urine Color Yellow (Yellow); Urobilinogen Urine Norm (Negative); pH Urine 6 (5-7)
== END 2022-09-04 17:27 | disposition home or self-care (01) ==
PROVIDERS: Emergency Provider Nurse Practitioner; PCP Nurse Practitioner
DX: F41.9 Anxiety disorder, unspecified (principal)
CPT/HCPCS: 81003; 96374; 99284; J2060

== ENCOUNTER 2022-09-08 14:22 | Emergency (ER) | payer BC, MEDICAID, SELFPAY ==
[2022-09-08 14:35] VITALS: BP 111/74; PULSE 87; RESP 18; TEMP 36.7; O2SAT 97
--- NOTE | 2022-09-08 14:42 | XR_ITS ---
WS: [id number] XR chest 1V portable [id number] REASON FOR EXAM: dyspnea/cough FINDINGS: The chest is unchanged compared to 08/19/2022. The heart and mediastinum are within normal limits. Calcified granulomatous disease in both hemithora valerie. No acute/subacute pulmonary parenchymal or pleural abnormality. Bony thorax is intact with no significant abnormality. XR/XR chest 1V portable [id number] IMPRESSION: No acute chest abnormality.
--- NOTE | 2022-09-08 14:43 | ECG_ITS ---
[facility] Test Date: 2022-09-08 Pat Name: Narendra Harrison Department: Room: Gender: Male [employer] In[employer] Channeler: : 2000 Requested By: Louie Aleman Order Number: [id number] Heath MD: Justin Mckeon M.D. Measurements Intervals [place] Rate: 80 P: 148 ID: [id number] QRS: -22 QRSD: 88 T: -28 QT: 340 QTc: 394 Interpretive Statements ECTOPIC ATRIAL RHYTHM POSSIBLE LEFT ATRIAL ENLARGEMENT [-0.1mV P-WAVE IN V1/V2] POSSIBLE ANTERIOR MYOCARDIAL INFARCTION , OF INDETERMINATE AGE [30 ms Q WAVE IN V3/V4, OR R < 0.2 mV IN V4] Compared to ECG 08/30/2022 17:17:48 Ectopic atrial rhythm now present Sinus rhythm no longer present T-wave abnormality no longer present Myocardial infarct finding still present Electronically Signed On 09-08-2022 16:31:22 CDT by Justin Mckeon M.D. [id number]
[2022-09-08 15:06] LABS: Hematocrit 41.2 % (42.0-52.0); Hemoglobin 14.1 g/dL (11.7-16.6); Mean Corpuscular HGB Conc 34.2 g/dL (30.0-36.0); Mean Corpuscular Hemoglobin 29.7 pg (28.0-34.0); Mean Corpuscular Volume 86.9 fl (80-94); Mean Platelet Volume 9.7 fL (7.4-10.4); Platelet Count 294 10^3/cmm (130-400); Red Blood Count 4.74 10^6/uL (4.1-5.3); Red Cell Distribution Width 13.2 % (12.1-15.1); White Blood Count 13.1 10^3/uL (4.0-10.0)
[2022-09-08 15:30] LABS: Troponin(5th) Baseline 6 ng/L (0-15)
--- NOTE | 2022-09-08 15:36 | ED_ITS ---
HPI - Chest Pain General: Chief Complaint: Chest Pain Stated Complaint: ANXIETY Time Seen by Provider: 09/08/22 14:36 Source: patient Mode of arrival: ambulatory History of Present Illness: 22-year-old male presents emergency room states he had chest pain on and off for the last week. It began today at noon and has been continuous worse when he takes a deep breath. Is also noticed a lot of indigestion and took aspirin for the pain today with no relief he has no history of coronary artery disease he does have a history of marijuana abuse. He has not had any vomiting or diarrhea no lightheadedness no radiation of the disco mfort into the neck or arms MD complaint: chest pain Onset (ago): week(s) (1) Timing of current episode: episodic Prior episodes: Yes Onset: during rest and during exertion Pain location: epigastric Pain radiation: none Severity: mild Quality: heaviness Relieving factors: nothing Exacerbating factors: nothing Associated symptoms: Deny abdominal pain, diaphoresis, dyspnea, fever(s), leg edema, nausea, palpitations, sense of impending doom, syncope or vomiting Treatment prior to arrival: none Review of Systems Const: Denies: fever(s), chills, fatigue, malaise or diaphoresis ENMT: Denies: throat pain, ear or mastoid pain, nasal discharge or nasal congestion Card: Reports: chest pain; Denies: palpitations, irregular heart rhythm, edema or syncope Resp: Denies: dyspnea GI: Denies: abdominal pain, nausea or vomiting : Denies: flank pain, dysuria, urinary frequency or urinary urgency Skin/Breast: Denies: rash or pruritus [facility] ED PFSH: Medical History Bursitis and tendinitis of shoulder region Cannabis use disorder Generalized anxiety disorder Injury of right ankle and foot Muscle spasm of back Nicotine use disorder Panic disorder Psychiatric care PTSD (post-traumatic stress disorder) Surgical History No pertinent past surgical history Social History Alcohol intake: never Physical Exam Const: GENERAL APPEARANCE: cooperative and comfortable ORIENTATION/CONSCIOUSNESS: Yes awake, Yes oriented to person, Yes oriented to place and Yes oriented to time HENMT: COMMON NORMALS: normocephalic, atraumatic and hearing grossly normal bilaterally HEAD & SCALP: normocephalic and atraumatic Resp: COMMON NORMALS: normal respiratory effort, No retractions, No use of accessory muscles and clear to auscultation bilaterally AUSCULTATION: clear to auscultation bilaterally Cardio: COMMON NORMALS: regular rate, regular rhythm and No murmurs present (Cardio) RATE: regular rate RHYTHM: regular rhythm GI: COMMON NORMALS: Soft to palpation and No hepatosplenomegaly present AUSCULTATION: Yes normoactive bowel sounds PALPATION: Yes Soft to palpation, No Tenderness to palpation present (GI), No Guarding due to palpation present (GI) and Yes No hepatosplenomegaly present Extremity: COMMON NORMALS: normal to inspection, capillary refill normal, no clubbing, cyanosis or edema, no calf tenderness and no pedal edema Neuro: SENSORIUM/ORIENTATION: Yes oriented to person, Yes oriented to place and Yes oriented to time Skin: COMMON NORMALS: no rashes or lesions noted GENERAL SKIN EXAM: no rashes or lesions noted Course Vital Signs: Vital signs: Vital Signs Temperature 98.1 F 09/08/22 14:35 Pulse Rate 97 09/08/22 16:57 Respiratory Rate 18 09/08/22 14:35 Blood Pressure 115/72 09/08/22 16:57 Pulse Oximetry 95 09/08/22 16:57 Oxygen Delivery Me thod 09/08/22 14:35 MDM - Chest Pain Medical Decision Making Troponin negative EKG unremarkable patient's presentation and symptoms do not sound like acute coronary syndrome syndrome. He is already feeling better we will discharge patient home recommend pantoprazole 40 mg twice daily 14 days then resume the omeprazole. Avoid NSAIDs follow-up with primary care return if worsens Medical Records I reviewed the patient's medical records. Lab Data I reviewed the patient's lab results. 09/08/22 14:55 09/08/22 14:55 Radiology Impressions Chest X-Ray 09/08/22 14:42 IMPRESSION: No acute chest abnormality. Laboratory Results WBC 13.1 10^3/uL (4.0-10.0) H 09/08/22 14:55 RBC 4.74 10^6/uL (4.1-5.3) 09/08/22 14:55 Hgb 14.1 g/dL (11.7-16.6) 09/08/22 14:55 Hct 41.2 % (42.0-52.0) L 09/08/22 14:55 MCV 86.9 fl (80-94) 09/08/22 14:55 MCH 29.7 pg (28.0-34.0) 09/08/22 14:55 MCHC 34.2 g/dL (30.0-36.0) 09/08/22 14:55 RDW 13.2 % (12.1-15.1) 09/08/22 14:55 Plt Count 294 10^3/cmm (130-400) 09/08/22 14:55 MPV 9.7 fL (7.4-10.4) 09/08/22 14:55 Lymph % (Auto) Not Reportable 09/08/22 14:55 Power % (Auto) Not Reportable 09/08/22 14:55 Lymph # (Auto) Not Reportable 09/08/22 14:55 Power # (Auto) Not Reportable 09/08/22 14:55 Total Counted 100 (0-100) 09/08/22 14:55 Atypical Lymphs % 10.0 % (0-5) H 09/08/22 14:55 Absolute Neutrophils 5.1 10^3/cmm (1.4-6.5) 09/08/22 14:55 Segmented Neutrophils 36 % 09/08/22 14:55 Abs Segm Neuts (Man) 4.7 10/cmm (1.6-7.1) 09/08/22 14:55 Band Neutrophils 3.0 % 09/08/22 14:55 Abs Band Neuts (Man) 0.4 10^3/cmm (0.0-1.2) 09/08/22 14:55 Absolute Lymphocytes 6.6 10^3/cmm (1.2-3.4) H 09/08/22 14:55 Lymphocytes (Manual) 40 % 09/08/22 14:55 Monocytes (Manual) 9.0 % 09/08/22 14:55 Absolute Monocytes 1.2 10^3/cmm (0.1-0.6) H 09/08/22 14:55 Eosinophils (Manual) 2 % 09/08/22 14:55 Absolute Eosinophils 0.2 10^3/cmm (0.0-0.7) 09/08/22 14:55 Basophils (Manual) 0.0 % 09/08/22 14:55 Absolute Basophils 0.0 10^3/cmm (0.0-0.2) 09/08/22 14:55 Platelet Estimate Normal (Normal) 09/08/22 14:55 Sodium 138 mmol/L (136-145) 09/08/22 14:55 Potassium 4.0 mmol/L (3.5-5.1) 09/08/22 14:55 Chloride 99 mmol/L (98-107) 09/08/22 14:55 Carbon Dioxide 24 mmol/L (22-29) 09/08/22 14:55 Anion Gap 19.0 (5-19) 09/08/22 14:55 BUN 16 mg/dL (6-20) 09/08/22 14:55 Creatinine 1.0 mg/dL (0.7-1.2) 09/08/22 14:55 GFR Calculation 91.8 mL/min (90-130) 09/08/22 14:55 Glucose 87 mg/dL (65-115) 09/08/22 14:55 Calculated Osmolality 287 mOsm/kg (285-295) 09/08/22 14:55 Calcium 9.1 mg/dL (8.5-10.5) 09/08/22 14:55 Total Bilirubin 0.2 mg/dL (0.15-1.2) 09/08/22 14:55 AST 30 U/L (0-40) 09/08/22 14:55 ALT 69 U/L (0-41) H 09/08/22 14:55 Alkaline Phosphatase 61 U/L (40-130) 09/08/22 14:55 Troponin T Baseline 6 ng/L (0-15) 09/08/22 14:55 Troponin T 120 Minute 6.00 ng/L (0-15) 09/08/22 16:13 Delta Troponin T 0 ABS# (0-10) 09/08/22 16:13 Total Protein 6.7 g/dL (6.6-8.7) 09/08/22 14:55 Albumin 4.1 g/dL (3.5-5.2) 09/08/22 14:55 Globulin 2.6 g/dL (1.3-4.6) 09/08/22 14:55 Discharge Plan Discharge Patient Disposition: Home Clinical Impression: Anxiety, Atypical chest pain Condition: Stable Prescriptions: New pantoprazole 40 mg tablet,delayed release (DR/EC) 40 mg PO BID 14 Days Qty: 28 0RF Held omeprazole 40 mg capsule,delayed release(DR/EC) 40 mg PO DAILY 30 Days Qty: 30 1RF Hold Instructions: Resume on 09/22/22. No Action fluoxetine [Prozac] 40 mg capsule 40 mg PO DAILY Qty: 30 1RF trazodone 100 mg tablet 100 mg PO .HS Qty: 30 1RF hydroxyzine pamoate 25 mg capsule 50 mg PO Q6H PRN (Reason: Anxiety) 30 Days Qty: 120 1RF ibuprofen 800 mg tablet 800 mg PO Q8H PRN (Reason: pain) Qty: 90 0RF sumatriptan succinate 25 mg tablet See Rx Instructions PO .COMPLEX Qty: 10 0RF Rx Instructions: take 1 tab at onset of headache; if no relief may repeat 1 tab after at least 2 hrs; max = 4 tabs/24 hr PO metoprolol tartrate 25 mg tablet 12.5 mg PO BID 30 Days Qty: 30 0RF lisinopril 10 mg tablet 10 mg PO DAILY Qty: 30 0RF meclizine 25 mg Tablet 25 mg PO DAILY PRN (Reason: Dizziness) magnesium 200 mg Tablet 200 mg PO DAILY garlic 200 mg Tablet 200 mg PO DAILY albuterol sulfate 90 mcg/actuation HFA aerosol inhaler 2 inh inhalation Q4H PRN (Reason: shortness of breath or wheezing) Qty: 8.5 0RF Discharge Orders: Discharge ED (Routine); Ordered 09/08/22 Ordered By: Louie Goodwin Referrals: Jackie Irwin FNP [Primary Care Provider] - Discharge Diet: Usual diet Discharge Activity: Resume usual activity Patient Instructions: Opioid Safety, Pain Management Activity Restrictions/Additional Instructions: You are seen today for complaints of chest pain. Cardiac enzymes and EKG were normal. Recommend that you take pantoprazole 40 mg twice daily for 2 weeks and then resume your omeprazole 40 mg daily. Coding Level of Care Code ED [employer] Cleaner for Zahraa Desai
[2022-09-08 15:44] LABS: Slide Review Slide Review Perform
[2022-09-08 15:45] LABS: Absolute Eosinophils 0.2 10^3/cmm (0.0-0.7); Absolute Segmented Neutrophil 4.7 10/cmm (1.6-7.1); Alanine Aminotransferase 69 U/L (0-41); Albumin Level 4.1 g/dL (3.5-5.2); Alkaline Phosphatase 61 U/L (40-130); Aspartate Amino Transferase 30 U/L (0-40); Blood Urea Nitrogen 16 mg/dL (6-20); Calcium 9.1 mg/dL (8.5-10.5); Carbon Dioxide 24 mmol/L (22-29); Chloride 99 mmol/L (98-107); Creatinine Clr Calc Pharmacy 148.9156; Eosinophils 2 %; Globulin 2.6 g/dL (1.3-4.6); Glomerular Filtration Rate 91.8 mL/min (90-130); Glucose 87 mg/dL (65-115); Lymphocytes 40 %; Lymphocytes Absolute 6.6 10^3/cmm (1.2-3.4); Monocytes Absolute 1.2 10^3/cmm (0.1-0.6); Osmolality Calculated 287 mOsm/kg (285-295); Platelet Estimate Normal (Normal); Segmented Neutrophils 36 %; Sodium 138 mmol/L (136-145); Total Bilirubin 0.2 mg/dL (0.15-1.2); Total Cells Counted 100 (0-100); Total Protein 6.7 g/dL (6.6-8.7)
[2022-09-08 15:46] LABS: Absolute Neutrophil 5.1 10^3/cmm (1.4-6.5); Band Neutrophils Absolute 0.4 10^3/cmm (0.0-1.2)
[2022-09-08 16:49] LABS: Troponin 5 2HR Delta 0 ABS# (0-10)
[2022-09-08 16:57] VITALS: BP 115/72; PULSE 97; O2SAT 95
== END 2022-09-08 16:58 | disposition home or self-care (01) ==
PROVIDERS: Emergency Provider Family Medicine; PCP Nurse Practitioner
DX: R07.89 Other chest pain (principal); F41.9 Anxiety disorder, unspecified
CPT/HCPCS: 36415; 71045; 80053; 84484; 85007; 85025; 93005; 99285

== ENCOUNTER → 2022-09-22 15:58 | Outpatient (BNVA) | payer BC, SELFPAY | PROVIDERS: PCP Nurse Practitioner; Visit Provider Nurse Practitioner | DX: H69.80 Other specified disorders of Eustachian tube, unspecified ear (principal); R25.2 Cramp and spasm | CPT/HCPCS: 80053; 83735 ==

== ENCOUNTER → 2022-10-04 09:26 | Outpatient (BNVA) | payer BC, MEDICAID, SELFPAY | PROVIDERS: PCP Nurse Practitioner; Visit Provider Surgery | DX: R10.9 Unspecified abdominal pain (principal); R19.7 Diarrhea, unspecified | CPT/HCPCS: 87338 ==

== ENCOUNTER 2022-10-10 11:24 | Outpatient (CLI) | payer BC, MEDICAID, SELFPAY ==
--- NOTE | 2022-10-10 11:00 | MR_ITS ---
WS: [id number] MRI BRAIN WITHOUT CONTRAST HISTORY: R51.9 - Headache, unspecified COMPARISON: CT head 08/29/2022 TECHNIQUE: Diffusion imaging, multiplanar T1, T2 and FLAIR imaging obtained. No evidence for acute infarct or hemorrhage. Weiner-white matter differentiation is normal. No remote or acute infarcts are volume loss. Ventricles and extra-axial spaces are normal. No inferior displacement of cerebellar tonsils. The sella turcica and pituitary gland are unremarkabl e. Dural venous sinuses and [place] demonstrate no abnormality on this unenhanced studies. Paranasal sinuses: Moderate mucoperiosteal thickening is heterogeneous in the maxillary sinuses. No a ir-fluid levels. Mastoid air cells: Normal. Calvarium and scalp: Intact. MR/MR head wo con* [id number] IMPRESSION: 1. Unremarkable noncontrast MRI brain. 2. Heterogeneous maxillary sinusitis.
== END 2022-10-10 11:25 | disposition home or self-care (01) ==
LOC: RAD 11:28
PROVIDERS: PCP Nurse Practitioner; Visit Provider Nurse Practitioner
DX: R51.9 Headache, unspecified (principal); J32.0 Chronic maxillary sinusitis
CPT/HCPCS: 70551

== ENCOUNTER 2022-11-07 10:25 | Outpatient (CLI) | payer BC, MEDICAID, SELFPAY ==
--- NOTE | 2022-11-07 10:32 | NM_ITS ---
WS: [id number] NUCLEAR MEDICINE HIDA SCAN CLINICAL INFORMATION: RIGHT UPPER QUADRANT ABDOMINAL PAIN TECHNIQUE: Following intravenous administration of 7.4 mCi of technetium 99m mebrofenin, images of th e abdomen were obtained over the course of 60 minutes. Next, gallbladder ejection fraction was determ ined by obtaining preprandial and one-hour postprandial images of the gallbladder following oral kirill stion of Ensure. COMPARISON: Ultrasound gallbladder August 24, 2022 FINDINGS: Normal hepatic uptake at 5 minutes. Normal hepatic excretion. Gallbladder is visualized by 10 minutes . No evidence of acute cholecystitis. Normal common bile duct and small bowel activity. Gallbladder ejection fraction 89% within normal limits. No evidence of chronic cholecystitis. NM/NM hepatobiliary w phar* [id number] IMPRESSION: 1. No evidence of acute or chronic cholecystitis. 2. Gallbladder ejection fraction 89% within normal limits.
== END 2022-11-07 10:26 | disposition home or self-care (01) ==
LOC: RAD 10:26
PROVIDERS: PCP Nurse Practitioner; Visit Provider Surgery
DX: R10.11 Right upper quadrant pain (principal)
CPT/HCPCS: 78227; A9537

== ENCOUNTER → 2022-11-16 15:07 | Outpatient (BNVA) | payer BC, SELFPAY | PROVIDERS: PCP Nurse Practitioner; Visit Provider Nurse Practitioner | DX: Z02.83 Encounter for blood-alcohol and blood-drug test (principal) | CPT/HCPCS: 80306 ==

== ENCOUNTER 2023-01-16 09:40 | Day surgery (SDC) | payer BC, MEDICAID, SELFPAY ==
--- NOTE | 2023-01-13 15:16 | SUR.PREOP ---
1510 Spoke with Grandmother and she stated that pt is on a fishing trip and will not be back til Monday,instructed her to tell pt to bring rx with him on Monday am,NPO after midnight on Monday, she stated she would be with pt on Monday and would relay the information
[2023-01-16] VITALS (13 sets, daily range): BP systolic 145–167; BP diastolic 74–112; PULSE 47–77; RESP 14–20; TEMP 36.1–36.3; O2SAT 95–99; BMI 33.1
--- NOTE | 2023-01-16 09:47 | PM.HP ---
Providers/Chief Complaint Primary Care Provider: Jackie Irwin APN Chief Complaint: R10.11 History of Present Illness Narendra Harrison is a 22 year old male Medications/Allergies Home Medications Medication Instructions Recorded Confirmed Last Taken Type omeprazole 40 mg capsule,delayed 40 mg PO DAILY 30 days #30 caps 08/06/22 11/23/22 09/07/22 Rx release albuterol sulfate 90 mcg/actuation 2 inh inhalation Q4H PRN shortness 08/19/22 11/23/22 Unknown Rx aerosol inhaler of breath or wheezing #8.5 grams sumatriptan succinate 25 mg tablet See Rx Instructions PO .COMPLEX 08/30/22 11/23/22 Unknown Rx #10 tabs garlic 200 mg tablet 200 mg PO DAILY 09/08/22 11/23/22 09/07/22 History magnesium 200 mg tablet 200 mg PO DAILY 09/08/22 11/23/22 09/07/22 History meclizine 25 mg tablet 25 mg PO DAILY PRN Dizziness 09/08/22 11/23/22 Unknown History prochlorperazine maleate 10 mg 10 mg PO Q8H PRN 09/13/22 11/23/22 Unknown History tablet (Compazine) azelastine 137 mcg (0.1 %) nasal 2 spray intranasal BID #30 mL 09/22/22 11/23/22 Unknown Rx spray aerosol pantoprazole 40 mg tablet,delayed 40 mg PO BID 6 weeks #84 tabs 10/04/22 11/23/22 Unknown Rx release (Protonix) hydroxyzine pamoate 25 mg capsule 50 mg PO Q6H PRN Anxiety 30 days 10/17/22 11/23/22 Unknown Rx #120 caps silver sulfadiazine 1 % topical 1 applic topical DAILY #50 grams 10/28/22 11/23/22 Unknown Rx cream (Silvadene) ibuprofen 800 mg tablet 800 mg PO Q8H PRN pain #90 tabs 11/09/22 11/23/22 Unknown Rx sulfamethoxazole 800 1 tab PO BID 10 days #20 tabs 11/09/22 11/23/22 Unknown Rx mg-trimethoprim 160 mg tablet (Bactrim DS) fluoxetine 40 mg capsule (Prozac) 40 mg PO DAILY #30 caps 11/16/22 11/23/22 Unknown Rx lorazepam 1 mg tablet 1 mg PO BID PRN anxiety #60 tabs 11/16/22 11/23/22 Unknown Rx trazodone 100 mg tablet 100 mg PO .HS #30 tabs 11/16/22 11/23/22 Unknown Rx metoprolol tartrate 25 mg tablet 12.5 mg PO BID 30 days #30 tabs 12/26/22 Unknown Rx Allergies Allergy/AdvReac Type Severity Reaction Status Date / Time No Known Allergies Allergy Verified 11/23/22 16:15 PFSH Acute PFSH: Medical History Bursitis and tendinitis of shoulder region Cannabis use disorder Generalized anxiety disorder Injury of right ankle and foot Muscle spasm of back Nicotine use disorder Panic disorder Psychiatric care PTSD (post-traumatic stress disorder) Surgical History History of foot surgery No pertinent past surgical history Social History Alcohol intake: never Substance/Drug Use: never A&P Assessment and plan (1) Right upper quadrant pain: Plan Laparoscopic cholecystectomy Attestations Medical Necessity Statement*: Home Coding Level of Care Code Acute Code for Chg Fwd Diagnoses Right upper quadrant pain R10.11
[2023-01-16] MEDS: sodium chloride 0.9% 1,000 ML 30 ML IV (10:12)
[2023-01-16] MEDS: ceFAZolin 2,000 MG in sodium chloride 0.9% (plus) 50 ML 100 MG IV (11:25)
[2023-01-16] MEDS: lidocaine-epi 2% 20 mL INJ INJECTION (11:43)
--- NOTE | 2023-01-16 12:09 | P.OP_ITS ---
Operative Report Date of procedure: January 16, 2023 Pre-op diagnosis: Right upper quadrant syndrome Post-op diagnosis: same Procedure done: Laparoscopic cholecystectomy Specimens removed/disposition: Gallbladder Surgeon: Dr. Frank Nunez DO Anesthesia: General Estimated blood loss (mL): 5 Complications: None apparent Brief History: This very pleasant 22-year-old gentleman with right upper quadrant syndrome. Laparoscopic cholecystectomy indicated. The risk and benefits were explained and documented. Procedure: Patient was wheeled into the operative room and placed on the OR table in a supine position. Abdomen was inspected prepped and draped in usual sterile fashion. Time-out was performed and all present were in agreement. A 15 blade scalp was used to make a stab incision in the left upper quadrant and intra- abdominal insufflation was achieved using a Veress needle. After localizing the tissue incisions were made and a 5 millimeter trocar was placed into the umbilicus as well as 2 in the right upper quadrant. A 12 millimeter trocar was placed in the epigastrium. Gallbladder was grasped and elevated. The triangle of [place] was carefully dissected using blunt dissection and electrocautery until the triangle of [place] clearly identified. The cystic duct was clipped proximally and double clipped distally. The duct was then ligated proximally. The cystic artery was doubly clipped and ligated. The gallbladder was then removed from the liver bed using electrocautery. The gallbladder was removed from the abdomen using an Endo-Catch bag through the epigastric incision. The liver bed was inspected and no bleeding was seen. The abdomen was irrigated and suctioned. All ports removed. Skin was washed and dried. Incisions were closed with 4-0 Monocryl in a subcuticular interrupted fashion. Skin glue was applied. Patient tolerated the procedure well.
[2023-01-16] MEDS: fentaNYL 50 mcg/mL INJ 2mL IVP ×2 (12:20→12:35)
[2023-01-16] MEDS: ondansetron 2 mg/ML SDV 2 mL 4 MG IVP (12:43)
[2023-01-16] MEDS: HYDROcodone-acetaminophen 10-325 mg Tablet 1 TAB PO (13:10)
--- NOTE | 2023-01-16 13:19 | P.ANESASSM_ITS ---
Pre-Anesthetic Assessment Height/Weight: Height 1.91 m Weight 120.202 kg Temp Pulse Resp BP Pulse Ox O2 Del Method 97.3 F L 47 L 20 H 148/95 97 Room Air 01/16/23 12:54 01/16/23 13:11 01/16/23 13:11 01/16/23 13:11 01/16/23 13:11 01/16/23 13:11 Operation Date: 01/16/23 11:15 Proposed Procedures p [id number] lap leyda R10.11(Not Applicable) - Frank Nunez DO Familial anesthetic complications: none Was Beta Kassi taken within 24 hours: Yes Was Clonidine taken within 24 hours: N/A Last intake: Intake Last Liquid Date 01/15/23 Last Liquid Time 19:00 Last Solid Date 01/15/23 Last Solid Time 19:00 Social Tobacco and No alcohol Exam alert, oriented x 3 and regular rate & rhythm Airway Submandibular: within normal limits Cervical ROM: within normal limits Mallampati: Class II Dentition: chipped Pulmonary Chronic Obstructive Pulmonary Disease CV/HEM Hypertension GI Gastroesophageal Reflux Disease Metabolic Morbid Obesity [facility] Lower Back Pain Neuropsych Anxiety and Depression Anesthetic Plan ASA status: 3 Anesthesia: General Medications/Allergies Home Medications Medication Instructions Recorded Confirmed Last Taken Type omeprazole 40 mg capsule,delayed 40 mg PO DAILY 30 days #30 caps 08/06/22 01/16/23 01/02/23 Rx release garlic 200 mg tablet 200 mg PO DAILY 09/08/22 01/16/23 01/15/23 History magnesium 200 mg tablet 200 mg PO DAILY 09/08/22 01/16/23 01/15/23 History pantoprazole 40 mg tablet,delayed 40 mg PO BID 6 weeks #84 tabs 10/04/22 01/16/23 01/02/23 Rx release (Protonix) ibuprofen 800 mg tablet 800 mg PO Q8H PRN pain #90 tabs 11/09/22 01/16/23 01/15/23 Rx fluoxetine 40 mg capsule (Prozac) 40 mg PO DAILY #30 caps 11/16/22 01/16/23 01/15/23 Rx lorazepam 1 mg tablet 1 mg PO BID PRN anxiety #60 tabs 11/16/22 01/16/23 01/15/23 Rx trazodone 100 mg tablet 100 mg PO .HS #30 tabs 11/16/22 01/16/23 01/14/23 Rx metoprolol tartrate 25 mg tablet 12.5 mg PO BID 30 days #30 tabs 12/26/22 01/16/23 01/15/23 09:00 Rx docusate sodium 100 mg capsule 100 mg PO BID #14 caps 01/16/23 Unknown Rx (Colace) hydrocodone 10 mg-acetaminophen 1 tab PO Q6H PRN pain #20 tabs 01/16/23 Unknown Rx 325 mg tablet Allergies Allergy/AdvReac Type Severity Reaction Status Date / Time No Known Allergies Allergy Verified 11/23/22 16:15 Current Medications Generic Name Dose Route Start Last Admin Trade Name Freq PRN Reason Stop Dose Admin Sodium Chloride 1,000 mls @ 30 mls/hr 01/16/23 10:00 01/16/23 10:12 Sodium Chloride 0.9% IV 01/17/23 09:59 30 mls/hr .Q24H GENIA Administration Ondansetron HCl 4 mg 01/16/23 12:24 01/16/23 12:43 Ondansetron 2 Mg/Ml Sdv 2 Ml IVP 01/17/23 12:24 4 mg Q5M PRN Administration Nausea PACU Phase I [facility] Anesthesia Medical History Bursitis and tendinitis of shoulder region Cannabis use disorder Generalized anxiety disorder Injury of right ankle and foot Muscle spasm of back Nicotine use disorder Panic disorder Psychiatric care PTSD (post-traumatic stress disorder) Surgical History History of foot surgery No pertinent past surgical history Social History Alcohol intake: never Substance/Drug Use: never Data Anesthesia Cardiac Studies: No Data to Display
--- NOTE | 2023-01-16 16:55 | ANE.PACU2 ---
Inpatient post-anesthesia follow up: Airway intact: Yes Vital signs: Temperature 97.3 F Pulse Rate 47 Respiratory Rate 18 Blood Pressure 158/86 Pulse Oximetry 97 Oxygen Delivery Me thod Room Air Oxygen Flow Rate Fraction of Inspir ed Oxygen Hydration adequate: Yes Nausea and vomiting: Yes Pain level: 4 Mental status: Baseline
== END 2023-01-16 13:47 | disposition home or self-care (01) ==
PROVIDERS: PCP Nurse Practitioner; Visit Provider Surgery
PROC: 0FT44ZZ Resection of Gallbladder, Percutaneous Endoscopic Approach (ICD-10-PCS; CPT 47562; principal; 2023-01-16 11:05)
DX: K81.1 Chronic cholecystitis (principal); I10 Essential (primary) hypertension; J44.9 Chronic obstructive pulmonary disease, unspecified; K21.9 Gastro-esophageal reflux disease without esophagitis; E66.01 Morbid (severe) obesity due to excess calories; Z68.33 Body mass index [BMI] 33.0-33.9, adult; Z79.899 Other long term (current) drug therapy
CPT/HCPCS: 47562; 88304; J0690; J1100; J1170; J2250; J2405; J2704; J2710; J3010; J3490; J7030

== ENCOUNTER 2023-02-07 21:37 | Emergency (ER) | payer BC, MEDICAID, SELFPAY ==
[2023-02-07 21:41] VITALS: BP 157/95; PULSE 60; RESP 16; TEMP 36.7; O2SAT 97; BMI 32.2
--- NOTE | 2023-02-07 21:55 | ED_ITS ---
HPI - Abdominal Pain General: Chief Complaint: Abdominal Pain Stated Complaint: N/V, right side abdominal pain Time Seen by Provider: 02/07/23 21:49 History of Present Illness: 22-year-old male patient comes in with lower abdominal pain for the last 2 to 3 days. Patient is also had nausea and vomiting and diarrhea with it. Patient reports chills. Patient appears nontoxic at this time. Patient appears in no acute distress. Patient was also concerned about recent tick bite that may be contributing to his symptoms. Patient had a gallbladder removal done approximately 3 weeks ago. Patient appears in mild pain at rest. Associated Symptoms: Reports chills, diarrhea, nausea and vomiting Review of Systems Const: Reports: chills Card: Denies: chest pain Resp: Denies: dyspnea GI: Reports: abdominal pain, nausea, vomiting and diarrhea : Denies: difficulty urinating [facility] ED PFSH: Medical History (Updated 02/07/23 @ 23:25 by RASHAAD Britton) Bursitis and tendinitis of shoulder region Cannabis use disorder Generalized anxiety disorder Injury of right ankle and foot Muscle spasm of back Nicotine use disorder Panic disorder Psychiatric care PTSD (post-traumatic stress disorder) Surgical History (Updated 01/31/23 @ 13:01 by Frank Nunez DO) History of cholecystectomy History of foot surgery No pertinent past surgical history Social History Alcohol intake: never Substance/Drug Use: never Physical Exam Const: COMMON NORMALS: alert HENMT: COMMON NORMALS: normocephalic HEAD & SCALP: normocephalic Neck/C-Spine: COMMON NORMALS: full ROM Resp: COMMON NORMALS: normal respiratory effort and clear to auscultation bilaterally AUSCULTATION: clear to auscultation bilaterally Cardio: COMMON NORMALS: regular rate and regular rhythm RATE: regular rate RHYTHM: regular rhythm GI: COMMON NORMALS: Soft to palpation PALPATION: Yes Soft to palpation, Yes Tenderness to palpation present (GI) (Lower abdomen), No Guarding due to palpation present (GI) and No Rigid due to palpation : COMMON NORMALS: Yes no CVA tenderness BLADDER/KIDNEY EXAM: Yes no CVA tenderness Back/Pelvis: COMMON NORMALS: no CVA tenderness Extremity: COMMON NORMALS: normal to inspection and no pedal edema Neuro: SENSORIUM/ORIENTATION: Yes alert Skin: COMMON NORMALS: turgor normal GENERAL SKIN EXAM: turgor normal Course Vital Signs: Vital signs: Vital Signs Temperature 98.1 F 02/07/23 21:41 Pulse Rate 60 02/07/23 21:41 Respiratory Rate 16 02/07/23 21:41 Blood Pressure 157/95 02/07/23 21:41 Pulse Oximetry 97 02/07/23 21:41 Oxygen Delivery Me thod Room Air 02/07/23 21:41 MDM - Abdominal Pain Medical Decision Making Patient comes in today for lower abdominal discomfort with nausea and vomiting x2 to 3 days. On exam abdomen soft with some lower abdominal tenderness without guarding or rebound tenderness. Vital signs are normal. Patient appears nontoxic. Patient appears in mild pain. Differential diagnosis includes but not limited to bowel obstruction, constipation, gastroenteritis, appendicitis, perforation of the bowel. Laboratory values were unremarkable. CT of the abdomen pelvis showed some increase stool in the colon but otherwise normal. Reviewed exam with patient and family with recommendations for treatment and follow-up. They reported understanding and agreed to plan. Lab Data 02/07/23 21:57 02/07/23 21:57 Labs/Radiology: Radiology Impressions Abdomen/Pelvis CT 02/07/23 22:05 IMPRESSION: 1. No acute finding. Normal appendix. 2. The colon is rather fecal filled. Laboratory Results WBC 8.97 10^3/uL (3.29-11.43) 02/07/23 21:57 RBC 4.97 10^6/uL (3.85-5.65) 02/07/23 21:57 Hgb 15.10 g/dL (11.27-16.99) 02/07/23 21:57 Hct 41.9 % (37-53) 02/07/23 21:57 MCV 84.3 fl (82-101) 02/07/23 21:57 MCH 30.4 pg (27-33) 02/07/23 21:57 MCHC 36.0 g/dL (30-55) 02/07/23 21:57 RDW 13.1 % (12.1-15.1) 02/07/23 21:57 Plt Count 250 10^3/cmm (157-399) 02/07/23 21:57 MPV 10.6 fL (7.4-10.4) H 02/07/23 21:57 Neut % (Auto) 57.5 % 02/07/23 21:57 Lymph % (Auto) 28.3 % 02/07/23 21:57 [place] % (Auto) 8.4 % 02/07/23 21:57 Eos % (Auto) 4.3 % 02/07/23 21:57 Baso % (Auto) 0.9 % 02/07/23 21:57 Neut # (Auto) 5.16 10^3/uL (1.8-7.7) 02/07/23 21:57 Lymph # (Auto) 2.5 10^3/uL (0.8-4.8) 02/07/23 21:57 [place] # (Auto) 0.8 10^3/uL (0.2-0.9) 02/07/23 21:57 Eos # (Auto) 0.4 10^3/uL (0.0-0.8) 02/07/23 21:57 Baso # (Auto) 0.1 10^3/uL (0.0-0.1) 02/07/23 21:57 Nucleated RBC % (auto) 0 % 02/07/23 21:57 Nucleated RBCs # 0.0 /100WBC 02/07/23 21:57 Sodium 139 mmol/L (136-145) 02/07/23 21:57 Potassium 3.6 mmol/L (3.5-5.1) 02/07/23 21:57 Chloride 101 mmol/L (98-107) 02/07/23 21:57 Carbon Dioxide 26 mmol/L (22-29) 02/07/23 21:57 Anion Gap 15.6 (5-19) 02/07/23 21:57 BUN 11 mg/dL (6-20) 02/07/23 21:57 Creatinine 1.0 mg/dL (0.7-1.2) 02/07/23 21:57 GFR Calculation 91.8 mL/min (90-130) 02/07/23 21:57 Glucose 92 mg/dL (65-115) 02/07/23 21:57 Calculated Osmolality 287 mOsm/kg (285-295) 02/07/23 21:57 Calcium 9.7 mg/dL (8.5-10.5) 02/07/23 21:57 Total Bilirubin 0.4 mg/dL (0.15-1.2) 02/07/23 21:57 AST 32 U/L (0-40) 02/07/23 21:57 ALT 47 U/L (0-41) H 02/07/23 21:57 Alkaline Phosphatase 120 U/L (40-130) 02/07/23 21:57 Total Protein 7.8 g/dL (6.6-8.7) 02/07/23 21:57 Albumin 5.0 g/dL (3.5-5.2) 02/07/23 21:57 Globulin 2.8 g/dL (1.3-4.6) 02/07/23 21:57 Lipase 36 U/L (13-60) 02/07/23 21:57 Discharge Plan Discharge Patient Disposition: Home Clinical Impression: Gastroenteritis Condition: Stable Prescriptions: New ondansetron 4 mg tablet,disintegrating 4 mg PO Q8H PRN (Reason: nausea and vomiting) Qty: 10 0RF No Action ibuprofen 800 mg tablet 800 mg PO Q8H PRN (Reason: pain) Qty: 90 0RF Hold Instructions: Resume on 01/19/23. pantoprazole [Protonix] 40 mg tablet,delayed release (DR/EC) 40 mg PO BID 42 Days Qty: 84 1RF trazodone 100 mg tablet 100 mg PO .HS Qty: 30 2RF lorazepam 1 mg tablet 1 mg PO BID PRN (Reason: anxiety) Qty: 60 2RF fluoxetine [Prozac] 40 mg capsule 40 mg PO DAILY Qty: 30 2RF metoprolol tartrate 25 mg tablet 12.5 mg PO BID 30 Days Qty: 30 3RF omeprazole 40 mg capsule,delayed release(DR/EC) 40 mg PO DAILY 30 Days Qty: 30 1RF Hold Instructions: Resume on 09/22/22. magnesium 200 mg Tablet 200 mg PO DAILY garlic 200 mg Tablet 200 mg PO DAILY hydrocodone-acetaminophen 10-325 mg tablet 1 tab PO Q6H PRN (Reason: pain) Qty: 20 0RF Colace 100 mg capsule 100 mg PO BID Qty: 14 0RF Discharge Orders: Discharge ED (Routine); Ordered 02/07/23 Ordered By: Rk Mitchell Referrals: Jackie Irwin FNP [Primary Care Provider] - Discharge Diet: Usual diet Discharge Activity: Increase activity as tolerated Patient Instructions: Gastroenteritis (ED) Activity Restrictions/Additional Instructions: Home and rest. Drink plenty of water and fluids. Stay with a clear liquid diet until nausea and vomiting subsides. Foot and ibuprofen for pain. Activity as tolerated. Follow-up with primary care in 2 to 3 days for recheck. Return to ER for worsening symptoms such as blood in vomit or stool, fever greater than 100.4, inability to hold fluids down with no urine output within 8 to 12 hours, or dizziness and lightheaded. Coding Level of Care Code ED [employer] for Zahraa Desai
[2023-02-07 22:03] LABS: Basophils # 0.1 10^3/uL (0.0-0.1); Basophils % 0.9 %; Eosinophils # 0.4 10^3/uL (0.0-0.8); Eosinophils % 4.3 %; Hematocrit 41.9 % (37-53); Lymphocytes # 2.5 10^3/uL (0.8-4.8); Lymphocytes % 28.3 %; Mean Corpuscular Hemoglobin 30.4 pg (27-33); Mean Corpuscular Volume 84.3 fl (82-101); Mean Platelet Volume 10.6 fL (7.4-10.4); Monocytes # 0.8 10^3/uL (0.2-0.9); Monocytes % 8.4 %; Neutrophils # 5.16 10^3/uL (1.8-7.7); Neutrophils % 57.5 %; Nucleated Red Blood Cells % 0 %; Platelet Count 250 10^3/cmm (157-399); Red Blood Count 4.97 10^6/uL (3.85-5.65); Red Cell Distribution Width 13.1 % (12.1-15.1); White Blood Count 8.97 10^3/uL (3.29-11.43)
--- NOTE | 2023-02-07 22:05 | CTR_ITS ---
PROCEDURE INFORMATION: Exam: CT Abdomen And Pelvis With Contrast Exam date and time: 02/07/2023 10:14 PM Age: 22 years old Clinical indication: Abdominal pain; Localized; Right lower quadrant (rlq); Prior surgery; Surgery date: <1 month; Surgery type: Gb 3 weeks ago; Additional info: Recent surgery, n/v/d, fever TECHNIQUE: Imaging protocol: Computed tomography of the abdomen and pelvis with contrast. Radiation optimization: All CT scans at this facility use at least one of these dose optimization techniques: automated exposure control; mA and/or kV adjustment per patient size (includes targeted exams where dose is matched to clinical indication); or iterative reconstruction. Contrast material: OMNI 350; Contrast volume: 100 ml; Contrast route: INTRAVENOUS (IV); REPORTING DATA: Count of CT and Cardiac NM exams in prior 12 months: This patient has received 2 known CTs and 0 known cardiac nuclear medicine studies in the 12 months prior to the current study. COMPARISON: NM hepatobiliary w phar* [id number] 11/07/2022 10:32 AM RADIATION DOSE METRICS: Total DLP (mGy-cm): 1134.53 FINDINGS: Lungs: The visualized lung bases are clear. Liver: Unremarkable. No enhancing mass. Gallbladder and bile ducts: Absent gallbladder. Pancreas: Unremarkable with no suspicious mass. No ductal dilation. Spleen: The spleen is not enlarged. No suspicious enhancing mass is noted. Adrenal glands: Normal. No mass. Kidneys and ureters: No solid renal mass or hydronephrosis. Stomach and bowel: The colon is rather fecal filled. Mild sigmoid diverticulosis. No small bowel obstruction, abscess or free air. Appendix: Normal appendix. Intraperitoneal space: Unremarkable. No free air. No suspicious fluid collection. Vasculature: No AAA or acute vascular lesion identified. Lymph nodes: No enlarged lymph nodes. Urinary bladder: Unremarkable as visualized. Reproductive: Unremarkable as visualized. Bones/joints: No acute fracture. Soft tissues: No acute or suspicious finding noted. CT/CT abdomen pelvis w con* [id number] IMPRESSION: 1. No acute finding. Normal appendix. 2. The colon is rather fecal filled.
[2023-02-07 22:21] LABS: Alanine Aminotransferase 47 U/L (0-41); Alkaline Phosphatase 120 U/L (40-130); Anion Gap 15.6 (5-19); Aspartate Amino Transferase 32 U/L (0-40); Blood Urea Nitrogen 11 mg/dL (6-20); Calcium 9.7 mg/dL (8.5-10.5); Carbon Dioxide 26 mmol/L (22-29); Chloride 101 mmol/L (98-107); Globulin 2.8 g/dL (1.3-4.6); Glomerular Filtration Rate 91.8 mL/min (90-130); Glucose 92 mg/dL (65-115); Lipase 36 U/L (13-60); Osmolality Calculated 287 mOsm/kg (285-295); Potassium 3.6 mmol/L (3.5-5.1); Sodium 139 mmol/L (136-145); Total Bilirubin 0.4 mg/dL (0.15-1.2); Total Protein 7.8 g/dL (6.6-8.7)
[2023-02-07] MEDS: iohexol 350 mg/mL 500 mL Btl (per mL) IV (22:22)
[2023-02-07] MEDS: sodium chloride 0.9% 1,000 ML 999 ML IV (22:44)
[2023-02-07] MEDS: acetaminophen 1,000 MG/100 ML PIGGYBACK 400 MG IV (22:57)
[2023-02-07] MEDS: ketorolac 30 mg/mL INJ 15 MG IVP (22:57)
[2023-02-07 23:41] VITALS: BP 157/95; PULSE 60; RESP 16; TEMP 36.7; O2SAT 97
== END 2023-02-07 23:42 | disposition home or self-care (01) ==
PROVIDERS: Emergency Medicine; Emergency Provider Nurse Practitioner Family; PCP Nurse Practitioner
DX: K52.9 Noninfective gastroenteritis and colitis, unspecified (principal)
CPT/HCPCS: 36415; 74177; 80053; 83690; 85025; 96365; 96375; 99285; J0131; J1885; J7030; Q9967

== ENCOUNTER 2024-01-20 15:16 | Emergency (ER) | payer BC, MEDICAID, SELFPAY ==
[2024-01-20 15:51] VITALS: BP 149/78; PULSE 76; RESP 18; TEMP 36.7; O2SAT 99; BMI 31.2
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
[2024-01-20] MEDS: iohexol 350 mg/mL 500 mL Btl (per mL) IV (16:20)
[2024-01-20 16:25] VITALS: RESP 17; O2SAT 98
[2024-01-20] MEDS: morphine 4 mg/mL SDV 1 mL IVP (16:25)
[2024-01-20] MEDS: ondansetron 2 mg/ML SDV 2 mL 4 MG IVP (16:26)
--- NOTE | 2024-01-20 19:32 | PC.NURSE ---
Patient was discharged by dayshift staff.
[2024-01-20 19:33] VITALS: BP 135/82; PULSE 67; O2SAT 99
== END 2024-01-20 19:31 | disposition home or self-care (01) ==
PROVIDERS: Emergency Provider Emergency Medicine; PCP Nurse Practitioner Family
DX: S30.0XXA Contusion of lower back and pelvis, initial encounter (principal); V86.59XA Driver of other special all-terrain or other off-road motor vehicle injured in nontraffic accident, initial encounter
CPT/HCPCS: 72131; 73562; 74177; 96374; 96375; 99285; J2270; J2405; Q9967

== ENCOUNTER 2024-03-13 11:40 | Outpatient (CLI) | payer BC, MEDICAID, SELFPAY ==
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
[2024-03-13] MEDS: gadobenate dimeglumine 20 mL vial IV (12:50)
== END 2024-03-13 11:41 | disposition home or self-care (01) ==
LOC: RAD 11:40
PROVIDERS: PCP Nurse Practitioner Family; Visit Provider Nurse Practitioner Family
DX: S06.0XAA Concussion with loss of consciousness status unknown, initial encounter (principal); G44.309 Post-traumatic headache, unspecified, not intractable; J32.0 Chronic maxillary sinusitis; X58.XXXA Exposure to other specified factors, initial encounter
CPT/HCPCS: 70543; 70553